=== PATIENT | female | born 1965 | race Caucasian/White ===

== ENCOUNTER 2017-03-02 14:10 | Outpatient (CLI) | payer BC ==
--- NOTE | 2017-03-02 16:13 | RAD ---
BILATERAL HIPS TWO VIEWS: History: 51-year-old female with bilateral hip pain. RIGHT HIP TWO VIEWS: IMPRESSION: Mild degenerative changes without acute fracture or dislocation. LEFT HIP TWO VIEWS: IMPRESSION: Mild degenerative changes of the left hip but no acute fracture or dislocation. POS: OFF
--- NOTE | 2017-03-02 16:22 | RAD ---
LUMBAR SPINE FIVE VIEWS INCLUDING FLEXION AND EXTENSION LATERAL STANDING VIEWS: History: 51-year-old female with low back pain. FINDINGS: Changes of spondylosis with fairly marked narrowing at L1-2 and L5-S1. Mild stable retrolisthesis of L1 on L2. No abnormal translation between flexion and extension. Generalized facet arthrosis. No ac yuhaaviatam fracture. IMPRESSION: Spondylosis with fairly marked narrowing at L1-2 and L5-S1 with stable retrolisthesis of L1 on L2. G eneralized spondylosis. No abnormal translation. POS: OFF
== END 2017-03-02 14:11 | disposition home or self-care (01) ==
LOC: RAD-FRANK 14:10
DX: M54.5 Low back pain (principal); M25.559 Pain in unspecified hip; M47.816 Spondylosis without myelopathy or radiculopathy, lumbar region
CPT/HCPCS: 72100; 73521

== ENCOUNTER 2017-07-15 20:15 | Emergency (ER) | payer BC ==
[2017-07-15 20:49] LABS: #Basophils 0.1 thou/uL (0.0-0.2); #Eosinphils 0.2 thou/uL (0.0-0.7); #Lymphocytes 2.8 thou/uL (1.20-3.40); #Monocytes 0.5 thou/uL (0.11-0.59); #Neutrophils 6.7 thou/uL (1.40-6.50); %Basophils 0.7 % (0.0-1.0); %Eosinophils 2.2 % (0.0-10.0); %Lymphocytes 27.2 % (21.0-51.0); %Monocytes 4.8 % (0.0-10.0); Hemoglobin 14.8 g/dL (12.0-16.0); Mean Corpuscular HGB CONC 33.1 g/dL (32.0-36.0); Mean Corpuscular Hemoglobin 29.2 pg (27.0-31.0); Mean Corpuscular Volume 88.1 fl (81.0-99.0); Mean Platelet Volume 7.4 fL (7.4-10.4); Platelet Count 290 thou/uL (130-400); RBC Distribution Width 13.5 % (11.5-14.5); Red Blood Cell (RBC) Count 5.07 mill/uL (4.20-5.40); White Blood Cell (WBC) Count 10.3 thou/uL (4.8-10.8)
--- NOTE | 2017-07-15 20:49 | RAD ---
CHEST ONE VIEW: 07/15/17 HISTORY: Chest pain. COMPARISON: 03/28/15. FINDINGS: Cardiac silhouette is magnified by projection. Pulmonary vasculature is unremarkable. Retrocardiac de nsity is favored to represent a hiatal hernia. There is calcification in the aorta. No lobar consolid ation or evidence of pneumothorax. caustic purification operator leads overlie the chest. IMPRESSION: Atherosclerosis . No active cardiopulmonary abnormalities are otherwise demonstrated. POS: [place]
[2017-07-15 21:09] LABS: ALT (SGPT) 16 U/L (8-55); AST (SGOT) 18 U/L (5-34); Albumin 4.4 g/dL (3.5-5.0); Alkaline Phosphatase 104 U/L (40-150); Anion Gap 14 mmol/L (10-20); BUN (Urea Nitrogen) 12 mg/dL (9.8-20.1); Bilirubin, Total 0.3 mg/dL (0.2-1.2); CK (CPK) 102 U/L (29-168); Calc. Creatinine Clearance 0 mL/min (70-130); Calcium 9.6 mg/dL (7.8-10.44); Carbon Dioxide 22 mmol/L (22-29); Chloride 106 mmol/L (98-107); Estimated GFR-MDRD 85; Glucose 89 mg/dL (70-105); Potassium 3.7 mmol/L (3.5-5.1); Protein, Total 7.4 g/dL (6.0-8.3); Sodium 138 mmol/L (136-145)
[2017-07-15 21:11] LABS: CKMB 3.5 ng/mL (0-6.6); Troponin I Less than 0.010 ng/mL (< 0.028)
[2017-07-15] MEDS ORDERED: Ibuprofen 800 MG TAB ONE (22:02)
--- NOTE | 2017-07-17 15:41 | EKG ---
Test Reason : CHEST PAIN Blood Pressure : / mmHG Vent. Rate : 076 BPM Atrial Rate : 076 BPM P-R Int : 136 ms QRS Dur : 070 ms QT Int : 394 ms P-R-T Axes : 057 008 035 degrees QTc Int : 443 ms Normal sinus rhythm Possible Left atrial enlargement Borderline ECG Confirmed by JODY VERONICA, COLEMAN ([id number]), television news video editor BENJAMIN DOMINGUEZ ([id number]) on 07/17/2017 3:40:59 PM Referred By: Confirmed By:COLEMAN VERA MD
--- NOTE | 2017-07-17 15:41 | EKG ---
Test Reason : CP Blood Pressure : / mmHG Vent. Rate : 072 BPM Atrial Rate : 072 BPM P-R Int : 130 ms QRS Dur : 068 ms QT Int : 398 ms P-R-T Axes : 065 010 031 degrees QTc Int : 435 ms Normal sinus rhythm Possible Left atrial enlargement Borderline ECG Confirmed by COLEMAN VERA MD ([id number]), production editor BENJAMIN DOMINGUEZ ([id number]) on 07/17/2017 3:41:03 PM Referred By: Confirmed By:COLEMAN VERA MD
== END 2017-07-15 22:23 | disposition home or self-care (01) ==
LOC: ERS 20:15
DX: R07.9 Chest pain, unspecified (principal); K21.9 Gastro-esophageal reflux disease without esophagitis; I10 Essential (primary) hypertension; F17.210 Nicotine dependence, cigarettes, uncomplicated
CPT/HCPCS: 36415; 71045; 80053; 82550; 82553; 83880; 84484; 85025; 93005; 99406

== ENCOUNTER 2018-09-13 11:53 | Emergency (ER) | payer BC ==
[2018-09-13] MEDS ORDERED: Diazepam 5 MG TAB ONE (13:18)
== END 2018-09-13 13:20 | disposition home or self-care (01) ==
LOC: ERS 11:53
DX: M54.5 Low back pain (principal); G89.29 Other chronic pain; K21.9 Gastro-esophageal reflux disease without esophagitis; I10 Essential (primary) hypertension; F17.210 Nicotine dependence, cigarettes, uncomplicated
CPT/HCPCS: 99283

== ENCOUNTER 2018-12-05 06:13 | Emergency (ER) | payer BC ==
[2018-12-05] MEDS ORDERED: Morphine 4 MG/ML VIAL ONE (06:59)
[2018-12-05] MEDS ORDERED: Ketorolac Tromethamine 30 MG/ML VIAL ONE (06:59)
== END 2018-12-05 07:43 | disposition home or self-care (01) ==
LOC: ERS 06:13
DX: G89.29 Other chronic pain (principal); M54.5 Low back pain; K21.9 Gastro-esophageal reflux disease without esophagitis; I10 Essential (primary) hypertension; F17.210 Nicotine dependence, cigarettes, uncomplicated; Z79.891 Long term (current) use of opiate analgesic; Z79.899 Other long term (current) drug therapy
CPT/HCPCS: 96372; 99283; J1885; J2270

== ENCOUNTER 2019-03-28 22:45 | Emergency (ER) | payer BC ==
[2019-03-28] MEDS ORDERED: Ketorolac Tromethamine 30 MG/ML VIAL ONE (23:57)
== END 2019-03-29 01:11 | disposition left against medical advice (07) ==
LOC: ERS 22:45
DX: M54.5 Low back pain (principal); F17.210 Nicotine dependence, cigarettes, uncomplicated; I10 Essential (primary) hypertension
CPT/HCPCS: J1885

== ENCOUNTER 2019-05-17 16:34 | Emergency (ER) | payer BC ==
[2019-05-17] MEDS ORDERED: HYDROcodone/Acetaminophen 10/325 mg Tablet ONE (16:52)
== END 2019-05-17 17:05 | disposition home or self-care (01) ==
LOC: ERS 16:34
DX: G89.29 Other chronic pain (principal); M54.5 Low back pain; I10 Essential (primary) hypertension; F17.210 Nicotine dependence, cigarettes, uncomplicated
CPT/HCPCS: 99283

== ENCOUNTER 2019-05-18 17:45 | Emergency (ER) | payer BC ==
[2019-05-18 18:12] LABS: #Basophils 0.1 thou/uL (0.0-0.2); #Eosinphils 0.1 thou/uL (0.0-0.7); #Lymphocytes 2.3 thou/uL (1.20-3.40); #Monocytes 0.5 thou/uL (0.11-0.59); #Neutrophils 6.8 thou/uL (1.40-6.50); %Basophils 0.9 % (0.0-1.0); %Eosinophils 1.3 % (0.0-10.0); %Lymphocytes 23.6 % (21.0-51.0); %Monocytes 4.9 % (0.0-10.0); %Neutrophils 69.3 % (42.0-75.0); Hemoglobin 13.8 g/dL (12.0-16.0); Mean Corpuscular HGB CONC 33.3 g/dL (32.0-36.0); Mean Corpuscular Hemoglobin 29.1 pg (27.0-31.0); Mean Corpuscular Volume 87.4 fL (78.0-98.0); Mean Platelet Volume 8.2 fL (7.4-10.4); Platelet Count 396 thou/uL (130-400); RBC Distribution Width 12.1 % (11.5-14.5); Red Blood Cell (RBC) Count 4.75 mill/uL (4.20-5.40); White Blood Cell (WBC) Count 9.8 thou/uL (4.8-10.8)
[2019-05-18 18:17] LABS: Bacteria/HPF None Seen HPF (None Seen); Bilirubin 1+ (Negative); Blood, Urine Negative (Negative); Calcium Oxalate Crystals 4+ HPF (None Seen); Clarity Clear (Clear); Glucose, Urine (Dipstick) Normal (Negative); Leukocyte 250 Leu/uL (Negative); Nitrite Negative (Negative); Protein, Urine (Dipstick) 30 mg/dL (Neg-Trace); Urobilinogen 12 mg/dL (Less than 2)
[2019-05-18 18:29] LABS: RBC/HPF 0-3 HPF (0-3)
[2019-05-18 18:36] LABS: ALT (SGPT) 23 U/L (8-55); AST (SGOT) 17 U/L (5-34); Albumin 4.2 g/dL (3.5-5.0); Alkaline Phosphatase 100 U/L (40-110); Anion Gap 14 mmol/L (10-20); BUN (Urea Nitrogen) 17 mg/dL (9.8-20.1); Bilirubin, Total 0.3 mg/dL (0.2-1.2); Calc. Creatinine Clearance 0 mL/min (70-130); Calcium 9.2 mg/dL (7.8-10.44); Carbon Dioxide 21 mmol/L (22-29); Chloride 106 mmol/L (98-107); Estimated GFR-MDRD 70; Globulin 2.7 g/dL (2.4-3.5); Glucose 76 mg/dL (70-105); Potassium 4.1 mmol/L (3.5-5.1); Protein, Total 6.9 g/dL (6.0-8.3); Sodium 137 mmol/L (136-145)
[2019-05-18] MEDS ORDERED: HYDROcodone/Acetaminophen 5/325 mg Tablet ONE (21:20)
--- NOTE | 2019-05-18 21:49 | CT ---
EXAM: CT Stone Protocol PROVIDED CLINICAL HISTORY: Left lower quadrant pain COMPARISON: 07/04/2014 FINDINGS: The visualized lung bases are free of significant opacity. Moderate hiatal hernia. Changes of prior cholecystectomy with stable prominence of the common duct and intrahepatic biliary d uctal system. There is a 3 mm bladder calculus. There is no significant ureteral or renal collecting system dilatat ion. The solid abdominal organs demonstrate an unremarkable, unenhanced CT appearance. There is no bowel o bstruction evident. No free fluid or free air evident. Scattered vascular calcifications are seen. The osseous structures demonstrate no concerning lytic or blastic lesions. Lumbar spine degenerative changes are seen. IMPRESSION: 3 mm bladder calculus.
[2019-05-18] MEDS ORDERED: Ketorolac Tromethamine 60 MG/2 ML VIAL ONE (22:12)
== END 2019-05-18 22:45 | disposition home or self-care (01) ==
LOC: ERS 17:45
DX: N20.0 Calculus of kidney (principal); I10 Essential (primary) hypertension; F17.210 Nicotine dependence, cigarettes, uncomplicated
CPT/HCPCS: 36415; 74176; 80053; 81003; 81015; 85025; 96372; J1885

== ENCOUNTER 2019-05-21 04:56 | Inpatient (IN) | payer BC ==
[2019-05-21] MEDS ORDERED: Ondansetron PF 4 MG/2 ML Vial ONE (05:18)
[2019-05-21] MEDS ORDERED: Morphine 4 MG/ML VIAL ONE ×3 (05:18→09:12)
[2019-05-21 05:47] LABS: #Basophils 0.1 thou/uL (0.0-0.2); #Eosinphils 0.1 thou/uL (0.0-0.7); #Lymphocytes 2.1 thou/uL (1.20-3.40); #Monocytes 0.7 thou/uL (0.11-0.59); #Neutrophils 9.5 thou/uL (1.40-6.50); %Basophils 0.7 % (0.0-1.0); %Lymphocytes 16.9 % (21.0-51.0); %Monocytes 5.5 % (0.0-10.0); %Neutrophils 75.9 % (42.0-75.0); Hemoglobin 12.8 g/dL (12.0-16.0); Mean Corpuscular HGB CONC 32.3 g/dL (32.0-36.0); Mean Corpuscular Hemoglobin 28.8 pg (27.0-31.0); Mean Corpuscular Volume 89.2 fL (78.0-98.0); Mean Platelet Volume 8.5 fL (7.4-10.4); Platelet Count 324 thou/uL (130-400); RBC Distribution Width 12.1 % (11.5-14.5); Red Blood Cell (RBC) Count 4.44 mill/uL (4.20-5.40); White Blood Cell (WBC) Count 12.5 thou/uL (4.8-10.8)
[2019-05-21] MEDS ORDERED: Ketorolac Tromethamine 30 MG/ML VIAL ONE (05:53)
[2019-05-21 06:04] LABS: ALT (SGPT) 17 U/L (8-55); AST (SGOT) 15 U/L (5-34); Alkaline Phosphatase 82 U/L (40-110); Anion Gap 12 mmol/L (10-20); BUN (Urea Nitrogen) 13 mg/dL (9.8-20.1); Bilirubin, Total 0.2 mg/dL (0.2-1.2); Calc. Creatinine Clearance 0 mL/min (70-130); Calcium 8.9 mg/dL (7.8-10.44); Carbon Dioxide 24 mmol/L (22-29); Chloride 103 mmol/L (98-107); Estimated GFR-MDRD 81; Globulin 2.4 g/dL (2.4-3.5); Glucose 110 mg/dL (70-105); Lipase 193 U/L (8-78); Potassium 4.3 mmol/L (3.5-5.1); Protein, Total 6.4 g/dL (6.0-8.3); Sodium 135 mmol/L (136-145)
[2019-05-21 06:11] LABS: Bilirubin Negative (Negative); Blood, Urine Negative (Negative); Clarity Clear (Clear); Glucose, Urine (Dipstick) Normal (Negative); Leukocyte Negative Leu/uL (Negative); Nitrite Negative (Negative); Protein, Urine (Dipstick) Negative (Neg-Trace)
[2019-05-21] MEDS ORDERED: Promethazine HCl 25 MG/ML VIAL ONE (06:44)
[2019-05-21] MEDS ORDERED: Lidocaine 4% Topical Sol 50 ML BOT ONE (07:16)
[2019-05-21] MEDS ORDERED: Benzocaine 20% Spray 60 ML CAN ONE (07:17)
--- NOTE | 2019-05-21 08:39 | CT ---
PRELIMINARY REPORT/[facility]/AFTER HOURS PROCEDURE CT ABDOMEN AND PELVIS WITH INTRAVENOUS CONTRAST: CLINICAL HISTORY: PRIOR STUDY...ER 7...F54 presents to ED with left sided abdominal pain, known kidney stone. Pt report s dx of 3mm kidney stone 2 days ago, pain began 4 days ago. Tonight pt woke from sleep with worsened pain, left abdomen. Pt reports associated vomiting, denies fever. Pt has had kidney stones in past, h as always passed on own, never needed procedure. TECHNIQUE: Axial computed tomography images of the abdomen and pelvis with intravenous contrast. CONTRAST: With Isovue-370 100 mL. COMPARISON: None provided. FINDINGS: LUNG BASES: No basilar airspace consolidation or pleural effusion. LIVER: Unremarkable. GALLBLADDER AND BILE DUCTS: Status post cholecystectomy. Common bile duct measures up to 2.2 cm with moderate left greater than right intrahepatic biliary ductal dilatation. PANCREAS: Moderate dilatation of the proximal pancreatic duct measuring up to 6 mm. SPLEEN: Unremarkable. ADRENAL GLANDS: Unremarkable. KIDNEYS, URETERS, AND BLADDER: Unremarkable. No hydronephrosis or nephrolithiasis. No ureteral or malka dder calculi. STOMACH AND BOWEL: Moderate hiatal hernia. Multiple dilated loops of small bowel within the mid abdom en measuring up to 2.9 cm with distal decompressed loops of bowel and an acute transition point in th e right lower quadrant. Fecalization of the distal dilated bowel which indicates stasis. Findings lik geetha represent small bowel obstruction. APPENDIX: Normal appendix. PERITONEUM: No free fluid. No free air. LYMPH NODES: No lymphadenopathy. REPRODUCTIVE: Unremarkable as visualized. VASCULATURE: No aortic aneurysm. BONES: Degenerative changes of the spine, worst at L1/2. ABDOMINAL WALL AND SOFT TISSUES: Unremarkable. IMPRESSION: 1. Multiple dilated loops of small bowel within the mid abdomen measuring up to 2.9 cm with distal de compressed loops of bowel and an acute transition point in the right lower quadrant. Findings likely represent small bowel obstruction. 2. Status post cholecystectomy. Common bile duct measures up to 2.2 cm with moderate left greater srinath n right intrahepatic biliary ductal dilatation. 3. Moderate dilatation of the proximal pancreatic duct measuring up to 6 mm. Correlation with prior s tudies and/or EUS is recommended. ELECTRONICALLY SIGNED BY: Raquel Marshall MD May 21, 2019 7:00:32 AM SAMPLE SUPERVISOR This report is intended for review by the ordering physician only, in accordance of law. If you recei ve this report in error, please call [facility] at [phone]. FINAL REPORT CT ABDOMEN AND PELVIS WITH INTRAVENOUS CONTRAST: COMPARISON: 10/30/2011 FINDINGS: Low density lesions in the liver and a degree of biliary and pancreatic dilatation is stable. The hia mark hernia is slightly larger compared to the previous study. A tiny, 3 mm bladder calculus is unchan ged since CT stone protocol of 05/18/2019. I agree with the preliminary report given by Dr. Raquel Carrasco of [facility]. CODE QA POS: [facility]
[2019-05-21] MEDS ORDERED: Labetalol HCl 100 MG/20 ML VIAL ONE (08:44)
--- NOTE | 2019-05-21 08:46 | RAD ---
Abdomen one view HISTORY: Abdomen pain. Kidney stone. COMPARISON: FINDINGS: Large amount of stool overlies the right colon. Nonspecific bowel gas pattern. Nasogastric tube overlies the upper abdomen, with the tip directed over the pylorus. Metallic clips over the gallbladder fossa. Contrast serial within the urinary collecting system. IMPRESSION: Nasogastric tube within the stomach. Nonspecific bowel gas pattern
[2019-05-21] MEDS ORDERED: Bisacodyl 10 MG SUPP PR PRN (09:10)
[2019-05-21] MEDS ORDERED: Cepastat Lozenges 1 LOZ PO PRN (09:10)
[2019-05-21] MEDS ORDERED: Artificial Tears 18 DROP/0.9 ML EA EYE PRN (09:10)
[2019-05-21] MEDS ORDERED: hydrALAZINE 20 MG/ML VIAL SLOW IVP PRN (09:10)
[2019-05-21] MEDS ORDERED: Sodium Chloride 0.65% Nasal 44 ML BOT EA NARE PRN (09:10)
[2019-05-21] MEDS ORDERED: Acetaminophen 650 MG Suppository PR PRN (09:10)
[2019-05-21] MEDS: Ondansetron PF 4 MG/2 ML Vial IVP PRN ×2 (10:00→17:15)
[2019-05-21] MEDS: Dextrose 5 % And 0.9 % NaCl 1,000 ML IV SCH ×2 (10:00→17:43)
--- NOTE | 2019-05-21 10:10 | PDOC.EVN ---
Event Note - Event Note Event Note: pt seen and examined, H & P dictation to follow
[2019-05-21 10:48] VITALS: BMI 26.4
[2019-05-21] MEDS: Morphine 4 MG/ML VIAL SLOW IVP PRN ×5 (10:57→19:58)
[2019-05-21] MEDS: Enoxaparin Sodium 40 MG/0.4 ML SYRINGE SC SCH (11:00)
[2019-05-21] MEDS: Pantoprazole 40 MG VIAL IVP SCH (11:00)
[2019-05-21] MEDS ORDERED: Iopamidol-370 76% 500 ML 1 ML ONE (11:21)
[2019-05-21] MEDS: diphenhydrAMINE 50 MG/ML VIAL IVP PRN (11:39)
--- NOTE | 2019-05-21 17:00 | CON ---
DATE OF CONSULTATION: 05/21/2019 REASON FOR CONSULTATION: Potential bowel obstruction. CHIEF COMPLAINT: "My abdomen was hurting." HISTORY OF PRESENT ILLNESS: The patient is a 54-year-old female, who had a recent diagnosis of a kidney stone. This was approximately 2 days ago. Her pain began to worsen and then she presented to the emergency room. Pain was located in the lower abdomen, left-hand side, up to 8/10. Crampy and somewhat constant. She had associated nausea with some vomiting. Currently, her pain is improved. She states that she is passing flatus. PAST MEDICAL HISTORY: For kidney stones. PAST SURGICAL HISTORY: For section, hernia repair, and laparoscopic cholecystectomy. SOCIAL HISTORY: Social drinker, half pack per day smoker since age 16. MEDICATIONS: Flomax 0.4 mg and Tylenol No.3 with codeine-both of these recently prescribed for her kidney stone. REVIEW OF SYSTEMS: Positive for positive flatus. No recent bowel movement. Chronic cough. No diarrhea. No chest pain. No shortness of breath. ALLERGIES: TO IODINE AND KETOROLAC. PHYSICAL EXAMINATION: VITAL SIGNS: Temperature 98.9, heart rate 72, blood pressure 178/90, and oxygen saturations 98% on room air. GENERAL: Middle-aged female, in no apparent distress. HEENT: Head is normocephalic and atraumatic. The patient does have an NG tube. There is probably less than 100 mL in the container. It is functioning. NECK: Supple. Midline trachea. CHEST: Grossly clear to auscultation bilaterally. HEART: Regularly regular. ABDOMEN: Soft without notable distention. No appreciable tenderness to palpation on exam. The patient does have normoactive bowel sounds. EXTREMITIES: Full range of motion. No deformity. SKIN: Good turgor. No jaundice. PSYCHIATRIC: Good insight and good judgment. LABORATORY DATA: White blood cell count is 12.5, neutrophils 75.9. RADIOLOGY: I independently reviewed the images of the patient's CT scan abdomen and pelvis. I also read the radiologist's interpretation. The patient does have a few mildly dilated loops of small bowel, especially in the upper and mid abdomen. There appears to be somewhat of a transition point in the right lower quadrant. I do appreciate some fecalization of the small bowel. On the plain film that was obtained later after NG tube placement, the patient does still have some air going throughout the colon. The bowel gas pattern is a little bit more nonspecific. She does have stool within the right colon and gas, more so on the left-hand side. There are clips from her cholecystectomy. ASSESSMENT: Partial small-bowel obstruction-the patient has had a few abdominal surgeries to include hernia repair, cholecystectomy, and section. Given that the patient is passing flatus and her vital signs are normal, I am inclined to continue with conservative management. Her white blood cell count is slightly elevated at 12.5. The patient was informed that 80% of these situations will resolve on their own. If, by tomorrow morning, she has not had a bowel movement or more reliable return of bowel function, small-bowel follow through will more than likely be ordered. The patient understands. PLAN: Continue n.p.o. and NG tube. Continue IV fluids. Reassess white blood cell count tomorrow morning. Possible small-bowel follow-through in the morning if she does not have demonstrable return of bowel function. Job ID: [id number]
[2019-05-21] MEDS ORDERED: Lorazepam 2 MG/ML VIAL SLOW IVP PRN (18:54)
--- NOTE | 2019-05-21 19:27 | HP ---
PRIMARY CARE PHYSICIAN: LORE Lee. REASON FOR ADMISSION: Small bowel obstruction. HISTORY OF PRESENT ILLNESS: A 54-year-old female who came to emergency room about 2 days ago. At that time, the patient was discharged from emergency room and subsequently, she had another ER visit and the patient had CT abdomen and pelvis which showed a kidney stone and the patient was discharged home. Last night around 3:00 a.m., the patient was woke up with severe abdominal pain. Family member thought may be a kidney stone related pain and that is why patient was brought to the ER and the patient had another CT abdomen and pelvis, which showed small bowel obstruction. This time, the patient was having diffuse crampy abdominal pain, constant, associated with nausea and vomiting. The patient was treated in the emergency room with NG tube with low intermittent suction. The patient was also hypertensive, required several doses of blood pressure medication and she was given several doses of pain medication in the emergency room, and subsequently, the patient was admitted under Medicine Service. PAST MEDICAL HISTORY: Hypertension. The patient is not on any medication. PAST SURGICAL HISTORY: Cholecystectomy, , hernia repair. PAST PSYCHIATRIC HISTORY: Reviewed and negative. SOCIAL HISTORY: The patient is . Drinks alcohol socially. She smokes about half pack per day since age of 16. FAMILY HISTORY: No strong family history of premature coronary artery disease, stroke, or cancer. ALLERGIES: IODINATED CONTRAST MEDIA AND TORADOL. CURRENT HOME MEDICATIONS: 1. Tylenol with codeine 1 tablet q.6 hourly p.r.n. 2. Flomax 0.4 mg p.o. daily. 3. Zofran ODT 4 mg q.6 hourly p.r.n., which was recently prescribed from emergency room. REVIEW OF SYSTEMS: CONSTITUTIONAL: Negative for weight loss or gain, ability to conduct usual activities. SKIN: Negative for rash, itching. EYES: Negative for double vision, pain. ENT/MOUTH: Negative for nose bleeding, neck stiffness, pain, tenderness. CARDIOVASCULAR: Negative for palpitations, dyspnea on exertion, orthopnea. RESPIRATORY: Negative for shortness of breath, wheezing, cough, hemoptysis, fever or night sweats. GASTROINTESTINAL: Negative for poor appetite, abdominal pain, heartburn, nausea, vomiting, constipation, or diarrhea. GENITOURINARY: Negative for urgency, frequency, dysuria, nocturia. MUSCULOSKELETAL: Negative for pain, swelling. NEUROLOGIC/PSYCHIATRIC: Negative for anxiety, depression. ALLERGY/IMMUNOLOGIC: Negative for skin rash, bleeding tendency. Please see my HPI for pertinent positives and negatives. All other review of systems reviewed and negative except as mentioned in HPI. EMERGENCY ROOM COURSE: The patient is given morphine 4 mg x3 dose, labetalol 20 mg, Zofran 8 mg, Toradol 30 mg, Phenergan 12.5 mg. PHYSICAL EXAMINATION: VITAL SIGNS: On arrival, blood pressure 183/103, pulse 94, respiratory rate 20, temperature 98.5, saturation 99% on room air. Weight 83.9 kg. GENERAL: The patient is currently alert, awake, no obvious acute distress. HEENT: Head; normocephalic, atraumatic. Eyes; pupils round, reactive to light. Extraocular muscles intact. ENT; oropharynx within normal limits. Moist mucous membranes. No oral lesion. No pharyngeal erythema. No exudate. NECK: Supple. No JVD. No meningeal signs of irritation. LUNGS: Clear to auscultation without any rhonchi or rales. CARDIAC: S1, S2. Regular without any murmur. No gallop. No rub. ABDOMEN: Soft. Diffuse discomfort noted. No bowel sounds. No peritoneal sign. EXTREMITIES: No edema. Good distal pulsation. NEUROLOGIC: Nonfocal examination. SIGNIFICANT LABORATORY DATA: CT abdomen and pelvis consistent with small bowel obstruction. X-ray abdomen showed nasogastric tube within stomach. CBC; WBC 12.5, hemoglobin 12.8, platelets 324. BMP; sodium 135, potassium 4.3, chloride 103, carbon dioxide 24, anion gap 12, BUN 13, creatinine 0.74, glucose 110, calcium 8.9. LFTs; AST 15, ALT 17, alkaline phosphatase 82, albumin 4.0, lipase 193. ASSESSMENT AND PLAN: 1. Small bowel obstruction. The patient is currently treated conservatively with NG tube with low intermittent suction. We will keep n.p.o. We will consult General Surgery for evaluation. We are expecting that with conservative treatment, the patient's small-bowel obstruction will improve. The patient may need small bowel follow-through tomorrow. We will control her pain with morphine p.r.n. basis. 2. Hypertension, uncontrolled. We will try to control blood pressure with hydralazine and labetalol p.r.n. basis and we will start blood pressure medication upon discharge. 3. Tobacco abuse disorder. Smoking cessation counseling given. 4. Deep venous thrombosis prophylaxis, Lovenox 40 mg subcu daily. 5. Gastrointestinal prophylaxis, Protonix 40 mg IV daily. CODE STATUS: The patient is full code. DISPOSITION PLAN: Based on clinical course, we are expecting the patient's stay in hospital more than 2 midnights. Plan of care discussed with the patient in detail. Job ID: [id number]
--- NOTE | 2019-05-21 19:44 | PDOC.EVN ---
Event Note - Event Note Event Note: Called by RN who states inadequate pain relief - morphine only helping for 30 minutes, and is available every 2 hours. RN reports pain has not been adequately managed today. Will place request for HABITAT BIOLOGIST through Anesthesia.
[2019-05-21] MEDS: D5 1/2 NS w/20 mEq KCL 1,000 ML IV SCH (19:58)
[2019-05-21] MEDS ORDERED: HYDROmorphone 10 mg/100 ml CADD IVPB PRN (19:59)
[2019-05-21] MEDS ORDERED: diphenhydrAMINE 50 MG/ML VIAL IVP PRN (19:59)
[2019-05-21] MEDS ORDERED: Zolpidem Tartrate 5 MG TAB PO PRN (19:59)
[2019-05-21] MEDS ORDERED: diphenhydrAMINE 50 MG/ML VIAL IM PRN (19:59)
[2019-05-21] MEDS ORDERED: Ondansetron PF 4 MG/2 ML Vial IVP PRN (19:59)
[2019-05-21] MEDS ORDERED: diphenhydrAMINE 25 MG CAP PO PRN (19:59)
[2019-05-21] MEDS ORDERED: Naloxone HCl 0.4 mg/ml Vial IV PRN (19:59)
[2019-05-21] MEDS ORDERED: Communication Order-Pharmacy FS SCH (20:00)
[2019-05-22] MEDS: Ondansetron PF 4 MG/2 ML Vial IVP PRN ×3 (04:26→19:23)
[2019-05-22 04:46] LABS: #Basophils 0.1 thou/uL (0.0-0.2); #Eosinphils 0.1 thou/uL (0.0-0.7); #Lymphocytes 2.9 thou/uL (1.20-3.40); #Monocytes 0.5 thou/uL (0.11-0.59); %Eosinophils 1.4 % (0.0-10.0); %Lymphocytes 29.6 % (21.0-51.0); %Monocytes 5.4 % (0.0-10.0); %Neutrophils 62.6 % (42.0-75.0); Hemoglobin 11.9 g/dL (12.0-16.0); Mean Corpuscular HGB CONC 32.4 g/dL (32.0-36.0); Mean Corpuscular Hemoglobin 28.8 pg (27.0-31.0); Mean Platelet Volume 8.6 fL (7.4-10.4); Platelet Count 296 thou/uL (130-400); RBC Distribution Width 12.2 % (11.5-14.5); Red Blood Cell (RBC) Count 4.14 mill/uL (4.20-5.40); White Blood Cell (WBC) Count 9.6 thou/uL (4.8-10.8)
[2019-05-22 05:02] LABS: Anion Gap 12 mmol/L (10-20); BUN (Urea Nitrogen) 5 mg/dL (9.8-20.1); Calc. Creatinine Clearance 99 mL/min (70-130); Calcium 8.6 mg/dL (7.8-10.44); Carbon Dioxide 24 mmol/L (22-29); Chloride 105 mmol/L (98-107); Estimated GFR-MDRD Greater than 90; Glucose 109 mg/dL (70-105); Potassium 3.5 mmol/L (3.5-5.1); Sodium 137 mmol/L (136-145)
[2019-05-22] MEDS ORDERED: Enalaprilat Dihydrate 1.25 MG/ML VIAL SLOW IVP SCH (07:15)
[2019-05-22] MEDS: Enoxaparin Sodium 40 MG/0.4 ML SYRINGE SC SCH (08:29)
[2019-05-22] MEDS: Pantoprazole 40 MG VIAL IVP SCH (08:30)
[2019-05-22] MEDS: Promethazine HCl 25 MG/ML VIAL IM PRN ×3 (08:42→23:16)
[2019-05-22] MEDS: D5 1/2 NS w/20 mEq KCL 1,000 ML IV SCH ×2 (08:43→18:01)
[2019-05-22] MEDS ORDERED: Morphine 4 MG/ML VIAL SLOW IVP PRN (09:23)
[2019-05-22] MEDS ORDERED: Morphine 2 MG/ML SYRINGE SLOW IVP PRN ×3 (09:23→23:06)
--- NOTE | 2019-05-22 10:29 | PDOC.HOSPP ---
- Subjective Encounter Date: 05/22/19 Encounter Time: 08:00 Subjective: Patient seen and examined. pt still has abdominal pain, her pain is not well controlled, she is anxious, No overnight events - Objective Vital Signs & Weight: Vital Signs (12 hours) Temp Pulse Resp BP BP Pulse Ox 05/22/19 09:42 173/77 H 05/22/19 08:30 100 05/22/19 08:29 156/97 H 05/22/19 07:51 98.5 F 91 16 156/97 H 100 05/22/19 05:10 71 187/100 H 05/22/19 04:34 98.0 F 66 16 179/94 H 99 05/22/19 01:00 98.8 F 87 16 170/97 H 98 Weight Weight 135 lb I&O: 05/21/19 05/22/19 05/23/19 06:59 06:59 06:59 Intake Total 2550 Output Total 1950 Balance 600 Result Diagrams: 05/22/19 04:15 05/22/19 04:15 Radiology Reviewed by me: Yes Hospitalist ROS - Review of Systems Eyes: denies: pain, vision change, conjunctivae inflammation, eyelid inflammation, redness, other ENT: denies: ear pain, ear discharge, nose pain, nose discharge, nose congestion , mouth pain, mouth swelling, throat pain, throat swelling, other Respiratory: denies: cough, dry, shortness of breath, hemoptysis, SOB with excertion, pleuritic pain, sputum, wheezing, other Cardiovascular: denies: chest pain, palpitations, orthopnea, paroxysmal noc. dyspnea, edema, light headedness, other Gastrointestinal: reports: nausea, vomiting, abdominal pain. denies: diarrhea, constipation, melena, hematochezia, other Genitourinary: denies: dysuria, frequency, incontinence, hematuria, retention, other Musculoskeletal: denies: neck pain, shoulder pain, arm pain, back pain, hand pain, leg pain, foot pain, other Skin: denies: rash, lesions, jay, bruising, other - Medication Medications: Active Medications Generic Name Dose Route Start Last Admin Trade Name Freq PRN Reason Stop Dose Admin Diphenhydramine HCl 25 mg 05/21/19 11:34 05/21/19 11:39 Benadryl IVP 25 mg Q8H PRN Administration Itching Enoxaparin Sodium 40 mg 05/21/19 09:00 05/22/19 08:29 Lovenox SC 40 mg 0900 DAVID Administration Hydralazine HCl 10 mg 05/21/19 09:10 05/22/19 05:10 Apresoline SLOW IVP 10 mg Q2H PRN Administration SBP > 180 and HR < 70 Potassium Chloride/Dextrose/Sod Cl 1,000 mls @ 100 mls/hr 05/21/19 19:00 11/03 08:43 D5 1/2 Ns W/20 Meq Kcl IV 1,000 mls .Q10H DAVID Administration Ondansetron HCl 4 mg 05/21/19 09:10 05/22/19 04:26 Zofran IVP 4 mg Q6H PRN Administration Nausea/Vomiting Pantoprazole Sodium 40 mg 05/21/19 09:00 05/22/19 08:30 Protonix IVP 40 mg DAILY DAVID Administration Promethazine HCl 12.5 mg 05/21/19 19:59 05/22/19 08:42 Phenergan IM 12.5 mg Q4H PRN Administration Nausea/Vomiting - Exam General Appearance: NAD, awake alert Eye: PERRL, anicteric sclera Eye - other findings: NG tube + ENT: normocephalic atraumatic, no oropharyngeal lesions Neck: supple, symmetric, no JVD, no thyromegaly Heart: RRR, no murmur, no gallops, no rubs Respiratory: CTAB, no wheezes, no rales Gastrointestinal: soft, non-distended Extremities: no cyanosis, no clubbing, no edema Skin: normal turgor, no lesions Neurological: no focal deficits Musculoskeletal: normal tone, normal strength Psychiatric: normal affect, normal behavior Hosp A/P (1) SBO (small bowel obstruction) Code(s): K56.609 - UNSP INTESTNL OBST, UNSP TO PARTIAL VERSUS COMPLETE OBST Status: Acute (2) Hypertension Code(s): I10 - ESSENTIAL (PRIMARY) HYPERTENSION Status: Chronic (3) GERD (gastroesophageal reflux disease) Code(s): K21.9 - GASTRO-ESOPHAGEAL REFLUX DISEASE WITHOUT ESOPHAGITIS Status: Chronic Qualifiers: Esophagitis presence: without esophagitis Qualified Code(s): K21.9 - Gastro -esophageal reflux disease without esophagitis (4) Anxiety Code(s): F41.9 - ANXIETY DISORDER, UNSPECIFIED Status: Chronic (5) Hiatal hernia Code(s): K44.9 - DIAPHRAGMATIC HERNIA WITHOUT OBSTRUCTION OR GANGRENE Status: Chronic - Plan old records reviewed/req, plan discussed w/ family, DVT proph w/lovenox 05/22/19, continue NG tube with LIS, currently on PIG MACHINE OPERATOR for pain control, medication reviewed as below, symptomatic treatment, discussed with , surgeon following, may need SBFT
--- NOTE | 2019-05-22 14:57 | RAD ---
SMALL BOWEL FOLLOW THROUGH: HISTORY: Abdominal pain. FINDINGS: Preliminary scalp film shows a mild amount of stool within the colon. Gastrografin was introduced th rough an NG tube. Small bowel transit time was approximately 20 minutes. Small bowel folds and justyn tony were normal. IMPRESSION: Unremarkable small bowel follow-through. POS: [place]
[2019-05-22] MEDS ORDERED: MD-Gastroview 120 ML BOT ONE (16:39)
[2019-05-22] MEDS ORDERED: traMADol HCl 50 MG TAB PO PRN ×2 (17:34)
--- NOTE | 2019-05-22 18:29 | PRG ---
DATE OF SERVICE: 05/22/2019 SUBJECTIVE: Ms. Perez is a 54-year-old woman who was admitted with abdominal pain. Clinical and radiographic examination were suspicious for acute small bowel obstruction. Nasogastric tube was placed and overnight has returned 750 mL of bile-tinged effluent. Currently, the patient reports no nausea or abdominal pain at present, although she has been on WOLF HUNTER fentanyl since yesterday for pain control. She denies any fevers or chills. OBJECTIVE: VITAL SIGNS: Today include blood pressure 156/94, pulse 102, respiratory rate is 20, temperature 98.2 degrees Fahrenheit, oxygen saturation 99% on room air. HEART: Reveals regular rate with mild sinus tachycardia. No murmurs or gallops auscultated. LUNGS: Clear to auscultation bilaterally. Her breathing is regular and nonlabored. ABDOMEN: Soft, nontender, nondistended. NEUROLOGIC: Reveals no focal deficits present. LABORATORY FINDINGS: Today include a CBC with 9600 white blood cells down from 12,500 yesterday. Hemoglobin and hematocrit remained stable at 11.9 and 36.8 respectively. Platelet count is also stable at 296,000. Metabolic profile; sodium 137, potassium 3.5, chloride is 105, bicarb is 24, BUN 5, creatinine 0.62, glucose is 109. Small-bowel follow-through was obtained today, which reveals no evidence of obstruction as contrast readily appeared in the colon within 20 minutes. IMPRESSION: Resolved acute partial small-bowel obstruction. PLAN: Nasogastric tube will be discontinued and diet initiated. We will discontinue WOLF HUNTER analgesics. The patient will be started on Tylenol for pain as needed, alternating days with tramadol 1 to 2 p.o. q.6 hours p.r.n. pain. Above findings and plan discussed with the patient who indicates understanding of information given. I have answered the questions. Job ID: [id number]
[2019-05-22] MEDS ORDERED: Acetaminophen/Codeine 30-300mg Tablet PO PRN (21:22)
--- NOTE | 2019-05-22 23:39 | PRG ---
DATE OF SERVICE: 05/22/2019 SUBJECTIVE: The patient was seen this evening during the evening rounds. The patient was resting comfortably, in no acute distress. Nursing staff states that the patient cannot take tramadol as it makes her extremely nauseated. OBJECTIVE: VITAL SIGNS: Stable, afebrile. RESPIRATORY: Equal chest rise and fall, no respiratory distress. IMPRESSION: Resolved acute partial small bowel obstruction. PLAN: Continue clear liquid diet and advance as tolerated. We will discontinue the patient's tramadol as it makes her nauseated and start the patient on Tylenol No.3 p.r.n. We will continue to have patient ambulate frequently. Job ID: [id number]
[2019-05-23] MEDS: Ondansetron PF 4 MG/2 ML Vial IVP PRN ×2 (01:04→11:55)
[2019-05-23] MEDS: diphenhydrAMINE 50 MG/ML VIAL IVP PRN (01:11)
[2019-05-23] MEDS: Promethazine HCl 25 MG/ML VIAL IM PRN ×2 (02:59→07:38)
[2019-05-23] MEDS: Labetalol HCl 100 MG/20 ML VIAL SLOW IVP PRN ×2 (03:54→07:40)
[2019-05-23] MEDS ORDERED: Ketorolac Tromethamine 30 MG/ML VIAL IVP SCH (04:00)
[2019-05-23 05:45] LABS: Anion Gap 15 mmol/L (10-20); BUN (Urea Nitrogen) 5 mg/dL (9.8-20.1); Calc. Creatinine Clearance 93 mL/min (70-130); Calcium 9.1 mg/dL (7.8-10.44); Carbon Dioxide 22 mmol/L (22-29); Chloride 102 mmol/L (98-107); Estimated GFR-MDRD Greater than 90; Glucose 133 mg/dL (70-105); Magnesium 1.4 mg/dL (1.6-2.6); Phosphorus 2.6 mg/dL (2.3-4.7); Sodium 135 mmol/L (136-145)
[2019-05-23] MEDS: D5 1/2 NS w/20 mEq KCL 1,000 ML IV SCH (06:03)
[2019-05-23] MEDS: Pantoprazole 40 MG VIAL IVP SCH (07:45)
[2019-05-23] MEDS: Enoxaparin Sodium 40 MG/0.4 ML SYRINGE SC SCH (09:59)
[2019-05-23] MEDS ORDERED: Ketorolac Tromethamine 30 MG/ML VIAL IVP PRN ×2 (10:00→10:18)
[2019-05-23] MEDS ORDERED: Cyclobenzaprine 10 MG TAB PO PRN (10:15)
[2019-05-23 15:34] VITALS: BP 126/73; TEMP 98.3
--- NOTE | 2019-05-24 06:53 | PQF ---
SAP Software Performance Engineer Crystal Reports Winform ViewerRadhaMUNDO VILLAVICENCIO BECKI TOMPKINS [id number] CLINICAL DOCUMENTATION CLARIFICATION FORM: POST DISCHARGE Addendum to original discharge summary date: ____ Late entry note date: __ DATE: 05/24/2019 ATTN:BECKI TOMPKINS Please exercise your independent, professional judgment in responding to the clarification form. Clinical indicators are provided on the bottom of this form for your review Please check appropriate box(s): [ ] SBO due to post op complication [ ] SBO due to hiatal hernia [ ] Other more appropriate diagnosis [X ] Unable to determine In addition, please specify: Present on Admission (POA): [X ] Yes [ ] No [ ] Unable to determine For continuity of documentation, please document condition throughout progress notes and discharge summary. Thank You. CLINICAL INDICATORS - SIGNS / SYMPTOMS / LABS Severe abdominal pain with nausea and vomiting - Documented in H&P on 05/21 by Tatiana Wright Small bowel obstruction - Documented in H&P on 05/21 by Tatiana Wright Hiatal Hernia chronic - Documented in Hospital PNs on 05/22 by Tatiana Wright RISK FACTORS Partial SBO the patient had few abdominal surgeries to include hernia repair, cholecystectomy and C section - Documented in Consult note 05/21 by Brendan Garcia GERD HTN TREATMENTS: Patient currently treated conservatively with NG tube with low intermittent suction - Documented in H&P on 05/21 by Tatiana Wright Abdomen Xray, Small Bowel X ray Continue n.p.o IV fluid NG tube - Documented in Consult note 05/21 by Brendan Garcia SAP Software Performance Engineer Crystal Reports Winform Viewer (This form is maintained as a part of the permanent medical record) 2014 [employer]. All Rights Reserved [email or web address] [not provided] MTDD
--- NOTE | 2019-05-24 10:02 | DIS ---
DATE OF ADMISSION: 05/21/2019 DATE OF DISCHARGE: 05/23/2019 DISCHARGE DISPOSITION: Home. FOLLOWUP: 1. Follow up with primary care physician, Anaid Edward in 1 week. 2. Follow up with General Surgery as needed. ALLERGIES: THE PATIENT IS ALLERGIC TO IODINE. BRIEF HOSPITAL COURSE: The patient is a 54-year-old female with hypertension, presented to the hospital with abdominal discomfort. Two days ago, she was diagnosed with a 3 mm renal stone. Pain worsened, for which she presented again to the emergency room. In the emergency room, the repeat CT scan was consistent with small bowel obstruction. The pain was controlled with IV morphine along with Toradol. She was evaluated by General Surgery. She was managed conservatively with NG tube. She had small bowel follow-through. Small bowel obstruction has resolved. She is tolerating oral diet. She has been cleared by General Surgery for discharge. FINAL DIAGNOSES: 1. Small bowel obstruction, resolved. 2. Hypertension. 3. Tobacco dependence. 4. Recent diagnosis of renal calculi. 5. Hypomagnesemia. PLAN: Plan was discussed with the patient in detail. She stated understanding. Job ID[facility] [id number] [facility]
== END 2019-05-23 15:50 | disposition home or self-care (01) | DRG 390 ==
LOC: ERS 04:56 → SURG A 07:36
PROVIDERS: ADMIT Internal Medicine; ATTEND Internal Medicine
DX: K56.600 Partial intestinal obstruction, unspecified as to cause (principal); K44.9 Diaphragmatic hernia without obstruction or gangrene; I10 Essential (primary) hypertension; Z90.49 Acquired absence of other specified parts of digestive tract; F17.210 Nicotine dependence, cigarettes, uncomplicated; Z91.041 Radiographic dye allergy status; Z88.8 Allergy status to other drugs, medicaments and biological substances; K21.9 Gastro-esophageal reflux disease without esophagitis; F41.9 Anxiety disorder, unspecified
CPT/HCPCS: 36415; 74018; 74176; 74177; 74250; 80048; 80053; 81003; 81015; 83690; 83735; 84100; 85025; 96361; 96372; 96374; 96375; 96376; C9113; J0360; J1200; J1650; J1885; J2060; J2270; J2405; J2550; J7042; Q9963; Q9967

== ENCOUNTER 2019-05-25 05:19 | Emergency (ER) | payer BC ==
[2019-05-25] MEDS ORDERED: Ondansetron PF 4 MG/2 ML Vial ONE (05:34)
[2019-05-25] MEDS ORDERED: Ketorolac Tromethamine 30 MG/ML VIAL ONE (05:47)
[2019-05-25 06:32] LABS: ALT (SGPT) 19 U/L (8-55); AST (SGOT) 24 U/L (5-34); Albumin 3.6 g/dL (3.5-5.0); Alkaline Phosphatase 68 U/L (40-110); Anion Gap 16 mmol/L (10-20); BHCG - Serum Negative (NEGATIVE); BUN (Urea Nitrogen) 15 mg/dL (9.8-20.1); Bilirubin, Total 0.3 mg/dL (0.2-1.2); Calc. Creatinine Clearance 0 mL/min (70-130); Calcium 9.8 mg/dL (7.8-10.44); Carbon Dioxide 18 mmol/L (22-29); Chloride 103 mmol/L (98-107); Estimated GFR-MDRD 71; Globulin 2.6 g/dL (2.4-3.5); Glucose 101 mg/dL (70-105); Lipase 29 U/L (8-78); Potassium 4.2 mmol/L (3.5-5.1); Pregs Control Background? CLEAR/WHITE (CLR/WHITE); Pregs Control Bar Appear? YES (CONTROL BAR); Protein, Total 6.2 g/dL (6.0-8.3); Sodium 133 mmol/L (136-145)
[2019-05-25] MEDS ORDERED: Sucralfate 1 GM/10 ML UDCUP ONE (06:33)
[2019-05-25 06:53] LABS: #Basophils 0.1 thou/uL (0.0-0.2); #Eosinphils 0.2 thou/uL (0.0-0.7); #Lymphocytes 2.4 thou/uL (1.20-3.40); #Monocytes 0.6 thou/uL (0.11-0.59); #Neutrophils 9.5 thou/uL (1.40-6.50); %Basophils 0.5 % (0.0-1.0); %Eosinophils 1.3 % (0.0-10.0); %Lymphocytes 18.9 % (21.0-51.0); %Monocytes 4.9 % (0.0-10.0); %Neutrophils 74.4 % (42.0-75.0); Hemoglobin 12.3 g/dL (12.0-16.0); Mean Corpuscular HGB CONC 32.9 g/dL (32.0-36.0); Mean Corpuscular Hemoglobin 29.3 pg (27.0-31.0); Mean Corpuscular Volume 88.9 fL (78.0-98.0); Mean Platelet Volume 8.4 fL (7.4-10.4); Platelet Count 250 thou/uL (130-400); RBC Distribution Width 12.8 % (11.5-14.5); Red Blood Cell (RBC) Count 4.21 mill/uL (4.20-5.40); White Blood Cell (WBC) Count 12.7 thou/uL (4.8-10.8)
[2019-05-25 07:07] LABS: Bilirubin Negative (Negative); Clarity Clear (Clear); Glucose, Urine (Dipstick) Normal (Negative); Leukocyte 500 Leu/uL (Negative); Nitrite Negative (Negative); Protein, Urine (Dipstick) Negative (Neg-Trace); Squamous Epithelial 0-3 HPF (0-3); WBC/HPF 0-3 HPF (0-3)
[2019-05-25 07:08] LABS: Bacteria/HPF 1+ HPF (None Seen)
[2019-05-25 07:09] LABS: Blood, Urine Trace (Negative)
--- NOTE | 2019-05-25 09:32 | RAD ---
1 VIEW CHEST 2 VIEWS ABDOMEN: Date: 05/25/2019 HISTORY: Small bowel obstruction. COMPARISON: 10/19/15. FINDINGS: 1 VIEW CHEST: Normal cardiac silhouette. Atherosclerosis of aorta. Pulmonary vessels and hilum are normal. Costophr enic angles are clear. No consolidation or mass. No pneumothorax or osseous abnormalities. Moderate h iatal hernia is noted. 2 VIEWS ABDOMEN: Surgical clips in the right upper quadrant. Air-filled, nondistended, nondilated colon is identified. There is fecal material in the right hemicolon. No evidence of small bowel distention or dilatation. No differential air fluid levels. No suspicious densities in the abdomen or pelvis. No pneumoperiton eum in the upright projection. There are two metallic densities projecting over the left and right hemipelvis, which are presumed to be external to the patient. Correlate clinically. IMPRESSION: 1. No acute cardiopulmonary process. 2. Nonspecific bowel gas pattern. POS: OFF
== END 2019-05-25 07:11 | disposition home or self-care (01) ==
LOC: ERS 05:19
DX: K59.00 Constipation, unspecified (principal); I10 Essential (primary) hypertension; F41.9 Anxiety disorder, unspecified; F17.210 Nicotine dependence, cigarettes, uncomplicated; Z79.891 Long term (current) use of opiate analgesic; Z79.899 Other long term (current) drug therapy
CPT/HCPCS: 36415; 74022; 80053; 81003; 81015; 83690; 84703; 85025; 96361; 96374; 96375; J1885; J2405

== ENCOUNTER 2019-12-10 04:32 | Emergency (ER) | payer SELFPAY ==
[2019-12-10] MEDS ORDERED: HYDROcodone/Acetaminophen 5/325 mg Tablet ONE (04:53)
--- NOTE | 2019-12-10 07:33 | RAD ---
CHEST 1 VIEW: INDICATION: Shortness of breath. History of COVID testing and cough. COMPARISON: Prior exam dated 06/12/2019 from [facility]. IMPRESSION: No acute cardiopulmonary abnormality. Stable small hiatal hernia. POS: BH
== END 2019-12-10 05:06 | disposition home or self-care (01) ==
LOC: ERS 04:32
DX: M54.5 Low back pain (principal); R05 Cough; F41.9 Anxiety disorder, unspecified; F17.210 Nicotine dependence, cigarettes, uncomplicated; I10 Essential (primary) hypertension
CPT/HCPCS: 71045

== ENCOUNTER 2020-01-12 15:41 | Emergency (ER) | payer SELFPAY ==
[2020-01-12] MEDS ORDERED: Ondansetron PF 4 MG/2 ML Vial ONE (16:26)
[2020-01-12] MEDS ORDERED: Morphine 4 MG/ML VIAL ONE (16:26)
[2020-01-12 16:27] LABS: #Basophils 0.1 thou/uL (0.0-0.2); #Lymphocytes 1.1 thou/uL (1.20-3.40); #Monocytes 0.2 thou/uL (0.11-0.59); #Neutrophils 9.1 thou/uL (1.40-6.50); %Basophils 0.6 % (0.0-1.0); %Eosinophils 0.1 % (0.0-10.0); %Lymphocytes 10.1 % (21.0-51.0); %Monocytes 2.3 % (0.0-10.0); Hemoglobin 15.6 g/dL (12.0-16.0); Mean Corpuscular HGB CONC 33.5 g/dL (32.0-36.0); Mean Corpuscular Hemoglobin 31.6 pg (27.0-31.0); Mean Corpuscular Volume 94.3 fL (78.0-98.0); Platelet Count 335 thou/uL (130-400); RBC Distribution Width 11.9 % (11.5-14.5); Red Blood Cell (RBC) Count 4.95 mill/uL (4.20-5.40); White Blood Cell (WBC) Count 10.4 thou/uL (4.8-10.8)
--- NOTE | 2020-01-12 16:34 | RAD ---
Exam:3 views left shoulder HISTORY: Fall. Pain. COMPARISON: None FINDINGS: Glenohumeral joint space is preserved. No dislocation or fracture. There are degenerative changes in the acromioclavicular joint space. Visualized left ribs and lung parenchyma do not demonstrate any acute abnormality. IMPRESSION: No fracture or dislocation. Chronic degenerative changes in the acromioclavicular joint s pace.
[2020-01-12 16:48] LABS: ALT (SGPT) 33 U/L (8-55); AST (SGOT) 19 U/L (5-34); Albumin 4.8 g/dL (3.5-5.0); Alkaline Phosphatase 121 U/L (40-110); Anion Gap 15 mmol/L (10-20); BUN (Urea Nitrogen) 10 mg/dL (9.8-20.1); Bilirubin, Total 0.5 mg/dL (0.2-1.2); Calc. Creatinine Clearance 0 mL/min (70-130); Calcium 10.1 mg/dL (7.8-10.44); Carbon Dioxide 24 mmol/L (22-29); Chloride 101 mmol/L (98-107); Estimated GFR-MDRD 84; Globulin 3.1 g/dL (2.4-3.5); Glucose 130 mg/dL (70-105); Lipase 30 U/L (8-78); Potassium 3.7 mmol/L (3.5-5.1); Protein, Total 7.9 g/dL (6.0-8.3); Sodium 136 mmol/L (136-145)
--- NOTE | 2020-01-12 18:08 | CT ---
CT CHEST, ABDOMEN AND PELVIS WITH IV CONTRAST: 01/12/20 PROVIDED CLINICAL HISTORY: Epigastric pain and vomiting. FINDINGS: Comparison is made with the examination dated 05/21/19. The heart, pericardium, and great vessels demonstrate an unremarkable CT appearance with the exceptio n of vascular calcifications, including coronary calcium. There is no evidence for thoracic lymph nod e enlargement. The airway appears patent and of normal caliber. The lungs are free of significant opacity. There is no pleural fluid or pneumothorax apparent. There is a large hiatal hernia, similar to prior examinations. Nonspecific apparent mural thickening involving the distal esophagus, which could reflect esophagitis. Marked intrahepatic and extrahepatic biliary ductal dilatation is redemonstrated with the common duct measuring up to 1.5 cm in transverse dimension. There is also prominence of the proximal pancreatic duct. There is no definite filling defect within the biliary system. No definite evidence for ampulla ry mass though evaluation is limited. There are multiple subcentimeter hypodense foci again noted throughout the liver, too small to defini tively characterize but not significantly changed with respect to the prior examination. The spleen, adrenal glands, and kidneys demonstrate an unremarkable CT appearance. There is a prominent fluid filled diverticulum arising from proximal jejunum. There is evidence for b owel obstruction. There is no inflammatory fat stranding, free fluid, or free air apparent. There is no evidence for appendicitis. The major regional vascular structures appear unremarkable. The osseous structures demonstrate no con cerning lytic or blastic lesions. The patient is status post cholecystectomy. IMPRESSION: 1. Large hiatal hernia with nonspecific mural thickening involving the distal most esophagus srinath t could reflect esophagitis. 2. Persistent marked intrahepatic and extrahepatic biliary ductal dilatation as well as promine nce of the pancreatic duct. Correlate with laboratory values regarding the possibility of biliary obs truction. GI consultation may be useful as indicated. 3. Other chronic findings as above. POS: JUAN A
== END 2020-01-12 18:47 | disposition home or self-care (01) ==
LOC: ERS 15:41
DX: S40.012A Contusion of left shoulder, initial encounter (principal); K44.9 Diaphragmatic hernia without obstruction or gangrene; K83.8 Other specified diseases of biliary tract; F41.9 Anxiety disorder, unspecified; F17.210 Nicotine dependence, cigarettes, uncomplicated; I10 Essential (primary) hypertension; W18.2XXA Fall in (into) shower or empty bathtub, initial encounter
CPT/HCPCS: 71260; 74177; 80053; 83690; 84484; 85025; 93005; 96361; 96374; 96375; J2270; J2405

== ENCOUNTER 2020-04-29 11:37 | Inpatient (IN) | payer SELFPAY ==
[2020-04-29 13:11] LABS: #Lymphocytes 1.6 thou/uL (1.20-3.40); #Monocytes 0.4 thou/uL (0.11-0.59); #Neutrophils 6.2 thou/uL (1.40-6.50); %Basophils 0.2 % (0.0-1.0); %Eosinophils 0.4 % (0.0-10.0); %Lymphocytes 19.2 % (21.0-51.0); %Monocytes 4.7 % (0.0-10.0); %Neutrophils 75.5 % (42.0-75.0); Hemoglobin 15.5 g/dL (12.0-16.0); Mean Corpuscular HGB CONC 33.3 g/dL (32.0-36.0); Mean Corpuscular Hemoglobin 29.6 pg (27.0-31.0); Mean Corpuscular Volume 88.9 fL (78.0-98.0); Mean Platelet Volume 8.1 fL (7.4-10.4); Platelet Count 289 thou/uL (130-400); RBC Distribution Width 12.5 % (11.5-14.5); Red Blood Cell (RBC) Count 5.24 mill/uL (4.20-5.40); White Blood Cell (WBC) Count 8.2 thou/uL (4.8-10.8)
--- NOTE | 2020-04-29 13:38 | RAD ---
Chest one view HISTORY: Chest pain. Nausea. COMPARISON: 12/10/2019. FINDINGS: Cardiac silhouette and pulmonary vasculature are unremarkable. Mediastinum is midline with aortic calcification. Small hiatal hernia. No lobar consolidation or evidence of pneumothorax. Hemostasis clips project over the gallbladder fos sa. IMPRESSION : No active cardiopulmonary abnormalities are demonstrated.
[2020-04-29 13:52] LABS: ALT (SGPT) 159 U/L (8-55); AST (SGOT) 77 U/L (5-34); Albumin 4.4 g/dL (3.5-5.0); Alkaline Phosphatase 193 U/L (40-110); Anion Gap 20 mmol/L (10-20); BUN (Urea Nitrogen) 14 mg/dL (9.8-20.1); Bilirubin, Total 0.4 mg/dL (0.2-1.2); Calc. Creatinine Clearance 0 mL/min (70-130); Calcium 9.2 mg/dL (7.8-10.44); Carbon Dioxide 17 mmol/L (22-29); Chloride 103 mmol/L (98-107); Globulin 3.3 g/dL (2.4-3.5); Glucose 98 mg/dL (70-105); Potassium 4.1 mmol/L (3.5-5.1); Protein, Total 7.7 g/dL (6.0-8.3); Sodium 136 mmol/L (136-145)
[2020-04-29] MEDS ORDERED: Aspirin Chewable 81 MG TAB ONE (15:23)
[2020-04-29] MEDS ORDERED: Albuterol 200 PUFF (6.7GM INHALER) ONE (15:41)
[2020-04-29 15:54] LABS: Bacteria/HPF None Seen HPF (None Seen); Bilirubin Negative (Negative); Blood, Urine Negative (Negative); Clarity Clear (Clear); Glucose, Urine (Dipstick) Normal (Negative); Ketone, Urine 20 mg/dL (Negative); Leukocyte 250 Leu/uL (Negative); Nitrite Negative (Negative); Protein, Urine (Dipstick) 50 mg/dL (Neg-Trace); Specific Gravity, Urine 1.046 (1.002-1.036); Squamous Epithelial 0-3 HPF (0-3); WBC/HPF 0-3 HPF (0-3)
[2020-04-29] MEDS ORDERED: Morphine 4 MG/ML VIAL ONE (15:58)
--- NOTE | 2020-04-29 16:35 | CT ---
CT ABDOMEN AND PELVIS WITHOUT CONTRAST: History: Suprapubic pain, abdominal pain, lack of appetite, nausea. Comparison: 01-12-2020, 05-30-2019 FINDINGS: Absence of oral and IV contrast reduces the sensitivity of the exam particularly for evaluation of so lid organs and bowel. The lung bases are unremarkable. Mild hiatal hernia. Nonspecific marrow thickening along the distal e sophagus again seen. The patient is post cholecystectomy. Biliary ductal dilatation is stable. The co mmon duct measures about 14 mm proximally and 20 mm distally. Biliary dilatation is essentially stabl e. Small cysts in the right lobe of the liver are also stable. There are punctate calculi in the kidneys measuring up to 3 mm. No calculi seen in the ureters or uri nary bladder. No hydroureteronephrosis is seen on either side. No free air or free fluid is seen in t he abdomen or pelvis. The small bowel loops are not abnormally dilated. 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 Uterus is present. There are vascular calcifications without evidence of aneurysmal dilatation of the abdominal aorta. T here are degenerative changes of the spine. IMPRESSION: 1. Tiny nonobstructing bilateral renal calculi. 2. Status post cholecystectomy with stable biliary ductal dilatation. 3. Mild hiatal hernia. 4. Jejunal diverticulum. POS: OFF
[2020-04-29 16:41] LABS: SARS-CoV-2 NAA Rapid Test DETECTED (NotDetected)
[2020-04-29] MEDS: Ketorolac Tromethamine 30 MG/ML VIAL IVP PRN (18:22)
[2020-04-29 18:41] LABS: Troponin I Less than 0.010 ng/mL (< 0.028)
[2020-04-29] MEDS ORDERED: Acetaminophen 650 MG Suppository PR PRN (19:02)
[2020-04-29] MEDS ORDERED: Acetaminophen 325 MG TAB PO PRN (19:02)
[2020-04-29] MEDS ORDERED: Benzonatate 100 MG CAP PO PRN (19:07)
--- NOTE | 2020-04-29 19:08 | PDOC.HHP ---
Hospitalist HPI - History of Present Illness History of Present Illness: ADMISSION DATE: 04/29/2020 TIME OF ASSESSMENT: 1800 PRIMARY CARE PHYSICIAN: None CHIEF COMPLAINT: Shortness of breath, generalized weakness and cough HPI: This is a 55-year-old woman who presents emergency department today after feeling generally unwell for the last week with progressively worsening generalized weakness and aching. She reports having discomfort in the center of her chest today that radiates towards the left side of her chest. States it was a 7 out of 10 in severity and has been intermittent for the last 2 to 3 days. S he is unable to describe the pain and states it almost feels like a stinging. Seems to be worse with coughing fits. She denies coughing up any purulent sputum or hemoptysis. Denies any known history of COPD or asthma but does smoke half a pack per day. For the last couple of days she has been unable to smoke due to feeling generally unwell. Patient states she was unable to get out of bed the last couple days. She also reports suprapubic discomfort with pain at the start of urination and darkening in her urine. Her p.o. intake has diminished the last few days. She denies any nausea vomiting or changes with her stools. She has been afebrile up until today and while in the emergency de partment was noted to have a low-grade temperature of 99. Patient has tested positive for Covid. ED COURSE: In the emergency department she underwent an EKG that showed sinus tachycardia with a heart rate of 100. T wave inversion seen in V4 through V6. No ST changes. Patient was given aspirin 325 mg. For her pain she received 4 mg of IV morphine and also given albuterol 2 puffs while in the ED to help with her breathing. Chest x-ray done showed no active cardiopulmonary abnormalities. There was a small hiatal hernia. CT of the abdomen and pelvis was also done demonstrating tiny nonobstructing bilateral renal calculi. Status post cholecystectomy with stable biliary ductal dilation in the presence of a mild hiatal hernia. Jejunal diverticulum also present. Labs showed a normal full blood count, neutrophils 75.5%. Sodium was 136, potassium 4.1, BUN 14, creatinine 0.75, GFR 80, AST 77, ALT 159, alk phos 193, total bilirubin 0.4. Troponin negative x2 and BNP less than 10. Urinalysis showed 20 ketones, 250 leukocyte esterase, 4-6 red blood cells. No bacteria or nitrates present. Covid positive, flu A/B negative. PAST MEDICAL HISTORY: 1. Tobacco abuse 2. Hypertension 3. Anxiety PAST SURGICAL HISTORY: 1. Cholecystectomy 2. x1 3. Hernia repair SOCIAL HISTORY: She lives at home with her son and . Denies any need for assistive devices in order to mobilize. Denies any heavy alcohol consumption. Reports smoking half a pack a day since age 16 but more recently has unable to smoke due to feeling unwell. FAMILY HISTORY: Noncontributory ALLERGIES: No known drug allergies CURRENT MEDICATIONS: None Hospitalist ROS - Medication Medications: Active Medications Generic Name Dose Route Start Last Admin Trade Name Freq PRN Reason Stop Dose Admin Ketorolac Tromethamine 30 mg 04/29/20 17:53 04/29/20 18:22 Ketorolac Tromethamine 30 Mg/Ml Vial IVP 05/04/20 17:54 30 mg Q6H PRN Administration Pain Hospitalist Results - Labs Result Diagrams: 04/29/20 12:55 04/29/20 12:55 Lab results: WBC 8.2 thou/uL (4.8-10.8) 04/29/20 12:55 Hgb 15.5 g/dL (12.0-16.0) 04/29/20 12:55 Hct 46.6 % (36.0-47.0) 04/29/20 12:55 MCV 88.9 fL (78.0-98.0) 04/29/20 12:55 Plt Count 289 thou/uL (130-400) 04/29/20 12:55 Neutrophils % 75.5 % (42.0-75.0) H 04/29/20 12:55 Sodium 136 mmol/L (136-145) 04/29/20 12:55 Potassium 4.1 mmol/L (3.5-5.1) 04/29/20 12:55 Chloride 103 mmol/L (98-107) 04/29/20 12:55 Carbon Dioxide 17 mmol/L (22-29) L 04/29/20 12:55 BUN 14 mg/dL (9.8-20.1) 04/29/20 12:55 Creatinine 0.75 mg/dL (0.6-1.1) 04/29/20 12:55 Glucose 98 mg/dL (70-105) 04/29/20 12:55 Calcium 9.2 mg/dL (7.8-10.44) 04/29/20 12:55 Total Bilirubin 0.4 mg/dL (0.2-1.2) 04/29/20 12:55 AST 77 U/L (5-34) H 04/29/20 12:55 ALT 159 U/L (8-55) H 04/29/20 12:55 Alkaline Phosphatase 193 U/L (40-110) H 04/29/20 12:55 Troponin I Less than 0.010 ng/mL (< 0.028) 04/29/20 18:00 B-Natriuretic Peptide Less than 10.0 pg/mL (0-100) 04/29/20 12:55 Serum Total Protein 7.7 g/dL (6.0-8.3) 04/29/20 12:55 Albumin 4.4 g/dL (3.5-5.0) 04/29/20 12:55 Urine Ketones 20 mg/dL (Negative) A 04/29/20 15:31 Urine Blood Negative (Negative) 04/29/20 15:31 Urine Nitrite Negative (Negative) 04/29/20 15:31 Ur Leukocyte Esterase 250 Wilbur/uL (Negative) A 04/29/20 15:31 Urine RBC 4-6 HPF (0-3) A 04/29/20 15:31 Urine WBC 0-3 HPF (0-3) 04/29/20 15:31 Ur Squamous Epith Cells 0-3 HPF (0-3) 04/29/20 15:31 Urine Bacteria None Seen HPF (None Seen) 04/29/20 15:31 Hospitalist H&P A/P - Problem (1) Chest pain Code(s): R07.9 - CHEST PAIN, UNSPECIFIED Status: Acute Assessment and Plan: Cardiac monitoring Continue to trend troponins Continue ASA Check d-dimer, TSH, BNP, mg+ CTA if d-dimer elevated (2) Cough Code(s): R05 - COUGH Status: Acute Assessment and Plan: Irasema frost (3) COVID-19 Code(s): U07.1 - COVID-19 Status: Acute Assessment and Plan: Decadron 6 mg IV daily Zinc and Vitamin C Monitor O2 sats check d-dimer, crp, Ferritin, LDH (4) Generalized weakness Code(s): R53.1 - WEAKNESS Status: Acute (5) Hypertension Code(s): I10 - ESSENTIAL (PRIMARY) HYPERTENSION Status: Chronic Assessment and Plan: Monitor BP Resume home medications once verified (6) GERD (gastroesophageal reflux disease) Code(s): K21.9 - GASTRO-ESOPHAGEAL REFLUX DISEASE WITHOUT ESOPHAGITIS Status: Chronic Qualifiers: Esophagitis presence: without esophagitis Qualified Code(s): K21.9 - Gastro-esophageal reflux disease without esophagitis Assessment and Plan: Famotidine 20 mg PO BID (7) Anxiety Code(s): F41.9 - ANXIETY DISORDER, UNSPECIFIED Status: Chronic Assessment and Plan: Stable (8) Tobacco abuse Code(s): Z72.0 - TOBACCO USE Status: Chronic Assessment and Plan: Smoking cessation - Plan Plan: CODE STATUS FULL DVT Prophylaxis: Lovenox 40 mg SC daily Case discussed with attending who agrees with plan as above.
[2020-04-29] MEDS ORDERED: Albuterol 200 PUFF (6.7GM INHALER) INH PRN (19:12)
[2020-04-29] MEDS ORDERED: Dexamethasone 4 mg/ml Vial SLOW IVP SCH (19:15)
[2020-04-29] MEDS ORDERED: Enoxaparin Sodium 40 MG/0.4 ML SYRINGE SC SCH (19:15)
[2020-04-29 19:33] VITALS: BMI 23.6
[2020-04-29] MEDS: Famotidine 20 MG TAB PO SCH (21:02)
[2020-04-29 22:20] LABS: CRP (Inflammatory) Less than 0.50 mg/dL (= or < 0.5); Magnesium 1.5 mg/dL (1.6-2.6)
[2020-04-29] MEDS ORDERED: Magnesium 2 GM/50 ML 2 GM in Premix Bag 1 BAG IVPB SCH (23:00)
[2020-04-30] MEDS: Melatonin 3 MG TAB PO PRN (00:30)
[2020-04-30] MEDS: Ketorolac Tromethamine 30 MG/ML VIAL IVP PRN ×4 (00:56→21:10)
[2020-04-30] MEDS: predniSONE 50 MG TAB PO SCH ×3 (03:24→14:14)
[2020-04-30 05:44] LABS: #Lymphocytes 0.9 thou/uL (1.20-3.40); #Monocytes 0.1 thou/uL (0.11-0.59); #Neutrophils 4.4 thou/uL (1.40-6.50); %Basophils 0.4 % (0.0-1.0); %Eosinophils 0.3 % (0.0-10.0); %Lymphocytes 16.2 % (21.0-51.0); %Monocytes 2.5 % (0.0-10.0); %Neutrophils 80.7 % (42.0-75.0); Hemoglobin 13.8 g/dL (12.0-16.0); Mean Corpuscular HGB CONC 33.5 g/dL (32.0-36.0); Mean Corpuscular Hemoglobin 29.8 pg (27.0-31.0); Mean Corpuscular Volume 89.1 fL (78.0-98.0); Mean Platelet Volume 9.2 fL (7.4-10.4); Platelet Count 216 thou/uL (130-400); RBC Distribution Width 12.4 % (11.5-14.5); Red Blood Cell (RBC) Count 4.63 mill/uL (4.20-5.40); White Blood Cell (WBC) Count 5.5 thou/uL (4.8-10.8)
[2020-04-30 06:09] LABS: ALT (SGPT) 96 U/L (8-55); AST (SGOT) 36 U/L (5-34); Albumin 3.6 g/dL (3.5-5.0); Alkaline Phosphatase 146 U/L (40-110); Anion Gap 14 mmol/L (10-20); BUN (Urea Nitrogen) 22 mg/dL (9.8-20.1); Bilirubin, Total 0.2 mg/dL (0.2-1.2); Calc. Creatinine Clearance 68 mL/min (70-130); Calcium 9.1 mg/dL (7.8-10.44); Carbon Dioxide 20 mmol/L (22-29); Chloride 103 mmol/L (98-107); Globulin 3.2 g/dL (2.4-3.5); Glucose 185 mg/dL (70-105); Potassium 4.2 mmol/L (3.5-5.1); Protein, Total 6.8 g/dL (6.0-8.3); Sodium 133 mmol/L (136-145)
[2020-04-30] MEDS: Enoxaparin Sodium 40 MG/0.4 ML SYRINGE SC SCH (07:34)
[2020-04-30] MEDS: Dexamethasone 4 mg/ml Vial SLOW IVP SCH (07:35)
[2020-04-30] MEDS: Zinc Sulfate 220 MG CAP PO SCH (07:35)
[2020-04-30] MEDS: Famotidine 20 MG TAB PO SCH ×2 (07:36→21:09)
[2020-04-30] MEDS: Ascorbic Acid 500 mg Chewable Tablet PO SCH (07:36)
[2020-04-30] MEDS ORDERED: Metoprolol Tartrate 5 MG/5 ML VIAL IVP PRN (08:25)
[2020-04-30] MEDS ORDERED: Bisacodyl 10 MG SUPP PR PRN (08:25)
[2020-04-30] MEDS ORDERED: Magnesium 2 GM/50 ML 2 GM in Premix Bag 1 BAG IVPB SCH (09:15)
[2020-04-30] MEDS: Ondansetron PF 4 MG/2 ML Vial IVP PRN ×3 (09:19→23:41)
[2020-04-30] MEDS: Senokot S 8.6-50 MG TAB PO PRN ×2 (09:19→21:26)
[2020-04-30] MEDS: HYDROcodone/Acetaminophen 5/325 mg Tablet PO PRN ×3 (09:19→23:41)
[2020-04-30] MEDS: hydrALAZINE 20 MG/ML VIAL SLOW IVP PRN ×2 (09:28→17:53)
--- NOTE | 2020-04-30 14:19 | PDOC.HOSPP ---
- Subjective Encounter Date: 04/30/20 Encounter Time: 11:45 Subjective: Patient is lying. She is in quite a bit of distress. She had a several episodes of emesis and nauseated. Her blood pressure is also quite high. Her sats are good at 99% in the room air. Covid positive. - Objective Vital Signs & Weight: Vital Signs (12 hours) Temp Pulse Resp BP BP Pulse Ox 04/30/20 11:45 99 F 74 16 175/81 H 99 04/30/20 10:30 170/83 H 04/30/20 09:28 72 214/98 H 04/30/20 07:45 98.7 F 60 14 192/89 H 99 04/30/20 05:23 98.2 F 68 15 190/84 H 100 Weight Admit Weight 121 lb 3.2 oz Weight 121 lb 3.2 oz I&O: 04/29/20 04/30/20 05/01/20 06:59 06:59 06:59 Intake Total 1 1 Balance 1 1 Result Diagrams: 04/30/20 04:42 04/30/20 04:42 Hospitalist ROS - Medication Medications: Active Medications Generic Name Dose Route Start Last Admin Trade Name Freq PRN Reason Stop Dose Admin Acetaminophen 650 mg 04/29/20 19:02 04/29/20 21:02 Acetaminophen 325 Mg Tab PO 650 mg Q4H PRN Administration Headache/Fever/Mild Pain (1-3) Hydrocodone Bitart/Acetaminophen 1 tab 04/30/20 08:25 04/30/20 09:19 Hydrocodone/Acetaminophen 5/325 Mg Tablet PO 1 tab Q6H PRN Administration Moderate to Severe Pain (5-10) Ascorbic Acid 1,000 mg 04/30/20 09:00 04/30/20 07:36 Ascorbic Acid 500 Mg Chewable Tablet PO 1,000 mg DAILY DAVID Administration Dexamethasone 6 mg 04/30/20 09:00 04/30/20 07:35 Dexamethasone 4 Mg/Ml Vial SLOW IVP 6 mg DAILY DAVID Administration Enoxaparin Sodium 40 mg 04/30/20 09:00 04/30/20 07:34 Enoxaparin Sodium 40 Mg/0.4 Ml Syringe SC 40 mg 0900 DAVID Administration Famotidine 20 mg 04/29/20 21:00 04/30/20 07:36 Famotidine 20 Mg Tab PO 20 mg BID DAVID Administration Hydralazine HCl 10 mg 04/30/20 08:25 04/30/20 09:28 Hydralazine 20 Mg/Ml Vial SLOW IVP 10 mg Q4H PRN Administration SBP>150 Ketorolac Tromethamine 30 mg 04/29/20 17:53 04/30/20 06:59 Ketorolac Tromethamine 30 Mg/Ml Vial IVP 05/04/20 17:54 30 mg Q6H PRN Administration Pain Melatonin 3 mg 04/29/20 23:01 04/30/20 00:30 Melatonin 3 Mg Tab PO 3 mg HS PRN Administration Insomnia Metoprolol Tartrate 5 mg 04/30/20 08:25 04/30/20 11:51 Metoprolol Tartrate 5 Mg/5 Ml Vial IVP 5 mg Q4H PRN Administration for HR > 90 or SBP>150 Ondansetron HCl 4 mg 04/30/20 08:51 04/30/20 09:19 Ondansetron Pf 4 Mg/2 Ml Vial IVP 4 mg Q4H PRN Administration Nausea/Vomiting Prednisone 50 mg 04/30/20 03:00 04/30/20 07:37 Prednisone 50 Mg Tab PO 04/30/20 15:01 50 mg 0300,0900,1500 DAVID Administration Senna/Docusate Sodium 2 tab 04/30/20 08:25 04/30/20 09:19 Senokot S 8.6-50 Mg Tab PO 2 tab BIDPRN PRN Administration Constipation Sodium Chloride 10 ml 04/29/20 19:02 04/30/20 07:37 Flush - Normal Saline 10 Ml Syringe IVF 10 ml Q12H PRN Administration Saline Flush Zinc Sulfate 220 mg 04/30/20 09:00 04/30/20 07:35 Zinc Sulfate 220 Mg Cap PO 220 mg DAILY DAVID Administration - Exam General Appearance: NAD, awake alert, ill appearing Eye: PERRL, anicteric sclera ENT: normocephalic atraumatic Neck: supple, no JVD Heart: RRR, normal peripheral pulses Respiratory: CTAB, normal chest expansion Gastrointestinal: soft, normal bowel sounds Extremities: 1+ LE edema Neurological: cranial nerve grossly intact, no focal deficits Psychiatric: normal affect, A&O x 3 Hosp A/P - Plan COVID-19 Pneumonia Nausea vomiting and abdominal distress Probable pleuritic chest pain. --Decadron zinc sulfate as well as vitamin C -Few doses prednisone will be completed today. Accelerated hypertension -Scheduled Lopressor IV until her emesis resolved Deconditioning and generalized weakness -Hopefully she will improve once the Covid pneumonia acuity gets better. Stable GERD --Continue with the PPI/Pepcid Full code
[2020-04-30] MEDS ORDERED: diphenhydrAMINE 50 MG CAP PO SCH (15:00)
[2020-04-30] MEDS ORDERED: Lorazepam 1 MG TAB PO PRN (15:09)
[2020-04-30] MEDS: Metoprolol Tartrate 5 MG/5 ML VIAL IVP SCH ×2 (15:58→21:16)
--- NOTE | 2020-04-30 16:52 | CT ---
CTA Angio Chest W Con 04/30/2020 4:32 PM Indication: Elevated d-dimer with chest pain and shortness of breath Technique: Multiple CTA images were obtained of the thorax with IV contrast. 3-D rendering: MIP arpita nstructed images were created and reviewed. Comparison: CT the chest, abdomen and pelvis dated January 12, [address] the abdomen and pelvis w ithout contrast dated April 29, 2020 Findings: Pulmonary arteries: No central or segmental pulmonary embolus is evident. Heart and Aorta: Normal appearing. Mediastinum:There is a large hiatal hernia. Lungs:The lungs are clear. Pleural space: Clear. Upper Abdomen: There is stable intrahepatic and extra hepatic biliary ductal dilatation. Small cyst within the right hepatic lobe are stable appearing. Osseous Structures: There is scattered degenerative and osteoarthritic change present. Soft tissues:No abnormality. Other findings:None. Impression: No central or segmental pulmonary embolus.
[2020-04-30] MEDS ORDERED: Nicotine 14 MG PATCH TD SCH (18:30)
[2020-05-01] MEDS: Morphine 2 MG/ML VIAL SLOW IVP PRN ×2 (01:01→05:30)
[2020-05-01] MEDS: Melatonin 3 MG TAB PO PRN (01:01)
[2020-05-01] MEDS: Metoprolol Tartrate 5 MG/5 ML VIAL IVP SCH ×2 (03:45→08:39)
[2020-05-01] MEDS: Ketorolac Tromethamine 30 MG/ML VIAL IVP PRN (06:44)
[2020-05-01] MEDS: Ondansetron PF 4 MG/2 ML Vial IVP PRN (06:44)
[2020-05-01 07:09] LABS: Band 1 % (5-11); Hemoglobin 13.5 g/dL (12.0-16.0); Lymphocytes 12 % (21-51); MDiff Complete? YES; Mean Corpuscular HGB CONC 34.3 g/dL (32.0-36.0); Mean Corpuscular Hemoglobin 30.7 pg (27.0-31.0); Mean Corpuscular Volume 89.6 fL (78.0-98.0); Mean Platelet Volume 8.5 fL (7.4-10.4); Monocytes 1 % (0-10); Neutrophil 86 % (42-75); Platelet Count 269 thou/uL (130-400); Platelet Morphology Comment Appears Adequate; RBC Distribution Width 12.7 % (11.5-14.5); RBC Morphology Normal; Red Blood Cell (RBC) Count 4.39 mill/uL (4.20-5.40); White Blood Cell (WBC) Count 20.6 thou/uL (4.8-10.8)
[2020-05-01] MEDS: Enoxaparin Sodium 40 MG/0.4 ML SYRINGE SC SCH (08:33)
[2020-05-01] MEDS: HYDROcodone/Acetaminophen 5/325 mg Tablet PO PRN (08:34)
[2020-05-01] MEDS: Famotidine 20 MG TAB PO SCH (08:34)
[2020-05-01] MEDS: Dexamethasone 4 mg/ml Vial SLOW IVP SCH (08:34)
[2020-05-01] MEDS: Ascorbic Acid 500 mg Chewable Tablet PO SCH (08:35)
[2020-05-01] MEDS: Zinc Sulfate 220 MG CAP PO SCH (08:35)
[2020-05-01 09:42] VITALS: BP 117/77; TEMP 98.4
--- NOTE | 2020-05-01 17:13 | PDOC.DS.DS ---
Provider - Provider Date of Admission: 04/30/20 15:51 Admitting Provider: Familia Gagnon DO Primary Care Physician: NO PCP PROVIDER Course - Hospital Course Hospital Course: COVID-19 Pneumonia Nausea vomiting and abdominal distress Probable pleuritic chest pain. --Decadron zinc sulfate as well as vitamin C -Few doses prednisone will be completed today. Accelerated hypertension -Scheduled Lopressor IV until her emesis resolved Deconditioning and generalized weakness -Hopefully she will improve once the Covid pneumonia acuity gets better. Stable GERD --Continue with the PPI/Pepcid Full code pt left AMA on Resuscitation Status: 04/29/20 19:02 Resuscitation Status Routine Co-Sign Provider: Resuscitation Status: FULL: Full Resuscitation - Labs Lab Results: 05/01/20 06:15 04/30/20 04:42 Abnormal Lab Results - Last 48 hrs 04/29/20 21:00: Magnesium 1.5 L 04/29/20 21:00: D-Dimer 1.64 H 04/29/20 21:00: TSH 3rd Generation 0.2767 L 04/30/20 04:42: Sodium 133 L, Carbon Dioxide 20 L, BUN 22 H, AST 36 H, ALT 96 H, Alkaline Phosphatase 146 H, Albumin/Globulin Ratio 1.1 L 04/30/20 04:42: Neutrophils % 80.7 H, Lymphocytes % 16.2 L, Lymphocytes # 0.9 L, Monocytes # 0.1 L 05/01/20 06:15: WBC 20.6 H, Neutrophils % (Manual) 86 H, Band Neuts % (Manual) 1 L, Lymphocytes % (Manual) 12 L - Physical Exam Vitals: Vital Signs (12 hours) Temp Pulse Resp BP BP Pulse Ox 05/01/20 08:40 98.4 F 99 18 117/77 117/77 99 Weight Admit Weight 121 lb 3.2 oz Weight 124 lb 8 oz Physical Exam: The patient was seen and examined on the day of discharge. Plan - Discharge Medications Home Medications: Medication Instructions Recorded Confirmed Type No Known 04/30/20 04/30/20 History Allergies: Iodinated Contrast Media [Iodinated Contrast Media - IV Dye] Allergy (Mild, Verified 04/30/20 00:02) Hives - Follow up Plan Referrals: PROVIDER,NO PCP [Primary Care Provider] - Disposition: LEFT AGAINST MEDICAL ADVICE Quality - Care Measures CORE MEASURES:: N/A
--- NOTE | 2020-05-04 10:50 | EKG ---
Test Reason : Blood Pressure : / mmHG Vent. Rate : 099 BPM Atrial Rate : 099 BPM P-R Int : 122 ms QRS Dur : 066 ms QT Int : 336 ms P-R-T Axes : 077 007 123 degrees QTc Int : 431 ms Normal sinus rhythm Right atrial enlargement Nonspecific T wave abnormality Abnormal ECG Confirmed by RAINE VERONICA, MICHELLE Briggs ([id number]), website/blog editor BENJAMIN DOMINGUEZ ([id number]) on 05/04/2020 10:49:52 AM Referred By: Confirmed By:MICHELLE NI MD
== END 2020-05-01 09:36 | disposition left against medical advice (07) | DRG 177 ==
LOC: ERS 11:37 → ERHOLD 16:24 → 2SW 17:45 → OBSVTOIN 04-30 15:51
PROVIDERS: ADMIT Family Medicine; ATTEND Internal Medicine
PROC: 8E0ZXY6 Isolation (ICD-10-PCS; principal; 2020-04-30)
DX: U07.1 COVID-19 (principal); J12.89 Other viral pneumonia; N20.0 Calculus of kidney; I10 Essential (primary) hypertension; F41.9 Anxiety disorder, unspecified; F17.210 Nicotine dependence, cigarettes, uncomplicated; R53.81 Other malaise; E05.90 Thyrotoxicosis, unspecified without thyrotoxic crisis or storm; K21.9 Gastro-esophageal reflux disease without esophagitis; Z90.49 Acquired absence of other specified parts of digestive tract
CPT/HCPCS: 0240U; 36415; 71045; 71275; 74176; 80053; 81003; 81015; 82728; 83615; 83735; 83880; 84439; 84443; 84484; 85025; 85379; 86140; 93005; 94664; 94760; 96365; 96374; 96375; 96376; G0378; J0360; J1100; J1650; J1885; J2270; J2405; J3475; J7512

== ENCOUNTER 2020-11-12 16:19 | Emergency (ER) | payer OTHER | END 2020-11-12 17:52 | disposition left against medical advice (07) | LOC: ERS 16:19 | DX: Z53.21 Procedure and treatment not carried out due to patient leaving prior to being seen by health care provider (principal) | CPT/HCPCS: 71045; 93005 ==

== ENCOUNTER 2020-11-14 09:20 | Emergency (ER) | payer OTHER ==
[2020-11-14] MEDS ORDERED: diphenhydrAMINE 50 MG/ML VIAL ONE (10:26)
[2020-11-14] MEDS ORDERED: methylPREDNISolone Sod Succ/PF 125 MG/2 ML VIAL ONE (10:26)
[2020-11-14] MEDS ORDERED: Ondansetron PF 4 MG/2 ML Vial ONE (10:26)
[2020-11-14] MEDS ORDERED: Famotidine/PF 20 mg/2ml Vial ONE (10:26)
[2020-11-14 10:41] LABS: #Eosinphils 0.1 thou/uL (0.0-0.7); #Lymphocytes 1.9 thou/uL (1.20-3.40); #Monocytes 1.2 thou/uL (0.11-0.59); #Neutrophils 16.5 thou/uL (1.40-6.50); %Eosinophils 0.7 % (0.0-10.0); %Lymphocytes 9.5 % (21.0-51.0); %Monocytes 6.3 % (0.0-10.0); %Neutrophils 83.5 % (42.0-75.0); Mean Corpuscular HGB CONC 33.4 g/dL (32.0-36.0); Mean Corpuscular Hemoglobin 30.1 pg (27.0-31.0); Mean Corpuscular Volume 89.9 fL (78.0-98.0); Platelet Count 466 thou/uL (130-400); RBC Distribution Width 12.9 % (11.5-14.5); Red Blood Cell (RBC) Count 3.65 mill/uL (4.20-5.40); White Blood Cell (WBC) Count 19.7 thou/uL (4.8-10.8)
[2020-11-14 11:09] LABS: ALT (SGPT) 9 U/L (8-55); AST (SGOT) 10 U/L (5-34); Albumin 3.3 g/dL (3.5-5.0); Alkaline Phosphatase 105 U/L (40-110); Anion Gap 15 mmol/L (10-20); BUN (Urea Nitrogen) 9 mg/dL (9.8-20.1); Bilirubin, Total 0.2 mg/dL (0.2-1.2); Calc. Creatinine Clearance 0 mL/min (70-130); Calcium 8.7 mg/dL (7.8-10.44); Carbon Dioxide 20 mmol/L (22-29); Chloride 101 mmol/L (98-107); Globulin 3.3 g/dL (2.4-3.5); Glucose 163 mg/dL (70-105); Lipase 32 U/L (8-78); Potassium 3.4 mmol/L (3.5-5.1); Protein, Total 6.6 g/dL (6.0-8.3); Sodium 133 mmol/L (136-145)
== END 2020-11-14 12:38 | disposition home or self-care (01) ==
LOC: ERS 09:20
DX: R91.8 Other nonspecific abnormal finding of lung field (principal); I10 Essential (primary) hypertension; F17.210 Nicotine dependence, cigarettes, uncomplicated; Z79.899 Other long term (current) drug therapy
CPT/HCPCS: 71275; 80053; 83690; 84484; 85025; 93005; 96374; 96375; J1200; J2405; J2930; S0028

== ENCOUNTER 2020-11-20 00:32 | Emergency (ER) | payer OTHER, SELFPAY ==
[2020-11-20] MEDS ORDERED: Ketorolac Tromethamine 30 MG/ML VIAL ONE (03:05)
== END 2020-11-20 04:55 | disposition home or self-care (01) ==
LOC: ERS 00:32
DX: J06.9 Acute upper respiratory infection, unspecified (principal); I10 Essential (primary) hypertension; F17.210 Nicotine dependence, cigarettes, uncomplicated; Z79.899 Other long term (current) drug therapy
CPT/HCPCS: 71045; 96372; J1885

== ENCOUNTER 2021-02-13 10:30 | Outpatient (CLI) | payer SELFPAY | END 2021-02-13 10:31 | disposition home or self-care (01) | LOC: RAD 10:30 | PROVIDERS: ATTEND Internal Medicine Pulmonary Disease | DX: R06.00 Dyspnea, unspecified (principal); J98.4 Other disorders of lung; K44.9 Diaphragmatic hernia without obstruction or gangrene | CPT/HCPCS: 71046 ==

== ENCOUNTER 2021-05-21 09:37 | Outpatient (CLI) | payer OTHER | END 2021-05-21 09:38 | disposition home or self-care (01) | LOC: MRI 09:37 | PROVIDERS: ATTEND Pain Medicine Interventional Pain Medicine | DX: M47.26 Other spondylosis with radiculopathy, lumbar region (principal) | CPT/HCPCS: 72148 ==

== ENCOUNTER 2021-10-02 17:46 | Emergency (ER) | payer OTHER ==
[2021-10-02] MEDS ORDERED: Boostrix 0.5 ML (Tdap) VIAL ONE (19:34)
== END 2021-10-02 19:53 | disposition home or self-care (01) ==
LOC: ERS 17:46
DX: L02.411 Cutaneous abscess of right axilla (principal); I10 Essential (primary) hypertension; F17.210 Nicotine dependence, cigarettes, uncomplicated; Z23 Encounter for immunization; Z79.899 Other long term (current) drug therapy
CPT/HCPCS: 10060; 87070; 87077; 87186; 87205; 90471; 90715

== ENCOUNTER 2021-11-08 15:16 | Emergency (ER) | payer OTHER | END 2021-11-08 16:34 | disposition home or self-care (01) | LOC: ERS 15:16 | DX: M54.41 Lumbago with sciatica, right side (principal); I10 Essential (primary) hypertension; F17.210 Nicotine dependence, cigarettes, uncomplicated; Z79.899 Other long term (current) drug therapy ==

== ENCOUNTER 2022-02-03 10:39 | Outpatient (CLI) | payer OTHER | END 2022-02-03 10:40 | disposition home or self-care (01) | LOC: RAD-FRANK 10:39 | DX: M25.511 Pain in right shoulder (principal) ==

== ENCOUNTER 2022-03-22 01:45 | Emergency (ER) | payer OTHER ==
[2022-03-22] MEDS ORDERED: Morphine 4 MG/ML VIAL ONE (04:16)
[2022-03-22] MEDS ORDERED: Ketorolac Tromethamine 30 MG/ML VIAL ONE (04:16)
== END 2022-03-22 05:05 | disposition home or self-care (01) ==
LOC: ERS 01:45
DX: K13.70 Unspecified lesions of oral mucosa (principal); I10 Essential (primary) hypertension; F17.210 Nicotine dependence, cigarettes, uncomplicated
CPT/HCPCS: 96372; 99282; J1885; J2270

== ENCOUNTER 2022-07-24 09:05 | Outpatient (CLI) | payer OTHER | END 2022-07-24 09:06 | disposition home or self-care (01) | LOC: RAD-FRANK 09:05 | PROVIDERS: ATTEND Nurse Practitioner Family | DX: R05.1 Acute cough (principal); K46.9 Unspecified abdominal hernia without obstruction or gangrene | CPT/HCPCS: 71046 ==

== ENCOUNTER 2022-09-12 17:21 | Inpatient (IN) | payer OTHER ==
[2022-09-12 18:32] VITALS: BMI 22.4
[2022-09-12] MEDS ORDERED: HYDROcodone/Acetaminophen 5/325 mg Tablet PO PRN (18:52)
[2022-09-12] MEDS: HYDROcodone/Acetaminophen 5/325 mg Tablet PO PRN (20:28)
[2022-09-12] MEDS: Azithromycin 500 MG in Sodium Chloride 0.9% 250 ML 250 ML IVPB SCH (20:28)
[2022-09-12 21:51] LABS: Troponin I Less than 0.010 ng/mL (< 0.028)
[2022-09-12] MEDS: Guaifenesin DM 100-10/5 ML UDCUP PO PRN (22:00)
[2022-09-12] MEDS: traZODone HCl 50 MG TAB PO PRN (22:01)
[2022-09-12] MEDS: Ondansetron PF 4 MG/2 ML Vial IVP PRN (22:26)
[2022-09-13] MEDS: Guaifenesin DM 100-10/5 ML UDCUP PO PRN ×2 (04:53→20:10)
[2022-09-13] MEDS: Ondansetron PF 4 MG/2 ML Vial IVP PRN ×3 (04:53→16:59)
[2022-09-13] MEDS: HYDROcodone/Acetaminophen 5/325 mg Tablet PO PRN ×4 (04:56→21:42)
[2022-09-13 06:40] LABS: Eosinophils 2 % (0-10); Hemoglobin 8.7 g/dL (12.0-16.0); Hypochromia SLIGHT = 6-15 cells (100X) (0-5/hpf); Lymphocytes 2 % (21-51); MDiff Complete? YES; Mean Corpuscular HGB CONC 32.2 g/dL (32.0-36.0); Mean Corpuscular Hemoglobin 21.4 pg (27.0-31.0); Mean Corpuscular Volume 66.6 fl (78.0-98.0); Monocytes 8 % (0-10); Neutrophil 88 % (42-75); Platelet Count 508 10x3/uL (130-400); Platelet Morphology Comment Appears Increased; RBC Distribution Width 17.2 % (11.5-14.5); Red Blood Cell (RBC) Count 4.03 mill/uL (4.20-5.40); White Blood Cell (WBC) Count 21.4 10x3/uL (4.8-10.8)
[2022-09-13 06:42] LABS: Anion Gap 14 mmol/L (10-20); BUN (Urea Nitrogen) 8 mg/dL (9.8-20.1); Calc. Creatinine Clearance 72 mL/min (70-130); Calcium 9.1 mg/dL (7.8-10.44); Carbon Dioxide 20 mmol/L (22-29); Chloride 105 mmol/L (98-107); Estimated GFR 100; Glucose 141 mg/dL (70-105); Potassium 3.5 mmol/L (3.5-5.1); Sodium 135 mmol/L (136-145); Troponin I Less than 0.010 ng/mL (< 0.028)
[2022-09-13] MEDS ORDERED: Albuterol 200 PUFF (6.7GM INHALER) INH PRN (09:10)
[2022-09-13 09:14] LABS: Troponin I Less than 0.010 ng/mL (< 0.028)
[2022-09-13] MEDS: Clindamycin/D5W 900 MG in Premix Bag 1 BAG IVPB SCH ×2 (10:43→16:59)
[2022-09-13] MEDS: cefTRIAXone\\ROCEPHIN 2 GM in Sodium Chloride 0.9% 100 ML IVPB SCH (12:02)
[2022-09-13] MEDS ORDERED: Nicotine 21 MG PATCH TD SCH (14:15)
[2022-09-13] MEDS ORDERED: Ipratropium Bromide 2.5 ml Neb NEB PRN (17:02)
[2022-09-13] MEDS: Azithromycin 500 MG in Sodium Chloride 0.9% 250 ML 250 ML IVPB SCH (19:00)
[2022-09-13] MEDS ORDERED: traMADol HCl 50 MG TAB PO PRN (19:38)
[2022-09-13] MEDS ORDERED: Acetaminophen 500 MG TAB PO PRN (19:39)
[2022-09-13] MEDS: guaiFENesin ER 600 MG TAB PO SCH (20:14)
[2022-09-13] MEDS: Promethazine HCl 12.5 MG in Sodium Chloride 0.9% 50 ML IVPB PRN (21:11)
[2022-09-14] MEDS: Clindamycin/D5W 900 MG in Premix Bag 1 BAG IVPB SCH ×3 (01:10→17:27)
[2022-09-14] MEDS: Promethazine HCl 12.5 MG in Sodium Chloride 0.9% 50 ML IVPB PRN ×3 (03:10→18:03)
[2022-09-14] MEDS: HYDROcodone/Acetaminophen 5/325 mg Tablet PO PRN ×3 (06:22→20:03)
[2022-09-14 06:52] LABS: #Eosinphils 0.1 thou/uL (0.0-0.7); #Lymphocytes 1.5 thou/uL (1.20-3.40); #Monocytes 0.9 thou/uL (0.11-0.59); #Neutrophils 14.3 thou/uL (1.40-6.50); %Basophils 0.2 % (0.0-1.0); %Eosinophils 0.5 % (0.0-10.0); %Monocytes 5.5 % (0.0-10.0); %Neutrophils 84.8 % (42.0-75.0); Hemoglobin 8.1 g/dL (12.0-16.0); Mean Corpuscular HGB CONC 31.6 g/dL (32.0-36.0); Mean Corpuscular Volume 66.4 fl (78.0-98.0); Mean Platelet Volume 8.8 fL (7.4-10.4); Platelet Count 578 10x3/uL (130-400); Red Blood Cell (RBC) Count 3.87 mill/uL (4.20-5.40); White Blood Cell (WBC) Count 16.9 10x3/uL (4.8-10.8)
[2022-09-14 07:23] LABS: AST (SGOT) 66 U/L (5-34); Bilirubin, Total 0.2 mg/dL (0.2-1.2); Calcium 8.7 mg/dL (7.8-10.44); Chloride 102 mmol/L (98-107); Potassium 3.7 mmol/L (3.5-5.1); Sodium 134 mmol/L (136-145)
[2022-09-14 07:25] LABS: Albumin 3.3 g/dL (3.5-5.0)
[2022-09-14 07:28] LABS: Globulin 3.4 g/dL (2.4-3.5); Glucose 99 mg/dL (70-105); Protein, Total 6.7 g/dL (6.0-8.3)
[2022-09-14 07:29] LABS: Carbon Dioxide 19 mmol/L (22-29); Ferritin 59.24 ng/mL (10-291)
[2022-09-14 07:30] LABS: Alkaline Phosphatase 201 U/L (40-110)
[2022-09-14 07:31] LABS: Calc. Creatinine Clearance 69 mL/min (70-130); Estimated GFR 95
[2022-09-14 07:32] LABS: BUN (Urea Nitrogen) 10 mg/dL (9.8-20.1)
[2022-09-14 07:33] LABS: Iron Binding Capacity, Total 259 mcg/dL (265-497)
[2022-09-14 07:34] LABS: ALT (SGPT) 90 U/L (8-55); Iron 9 ug/dL (50-170)
[2022-09-14] MEDS: guaiFENesin ER 600 MG TAB PO SCH ×2 (08:08→20:03)
[2022-09-14] MEDS: Saccharomyces boulardii 250 MG CAP PO SCH (08:08)
[2022-09-14] MEDS: Ondansetron PF 4 MG/2 ML Vial IVP PRN ×2 (08:14→15:09)
[2022-09-14] MEDS: Nicotine 21 MG PATCH TD SCH (08:17)
[2022-09-14 08:39] LABS: Anion Gap 17 mmol/L (10-20)
[2022-09-14] MEDS: cefTRIAXone\\ROCEPHIN 2 GM in Sodium Chloride 0.9% 100 ML IVPB SCH (11:55)
[2022-09-14] MEDS ORDERED: GoLYTELY 4,000 ml Bottle PO SCH (17:00)
[2022-09-14] MEDS: Azithromycin 500 MG in Sodium Chloride 0.9% 250 ML 250 ML IVPB SCH (18:26)
[2022-09-14] MEDS: Guaifenesin DM 100-10/5 ML UDCUP PO PRN (20:11)
[2022-09-15] MEDS: Promethazine HCl 12.5 MG in Sodium Chloride 0.9% 50 ML IVPB PRN ×3 (00:41→20:46)
[2022-09-15] MEDS: Clindamycin/D5W 900 MG in Premix Bag 1 BAG IVPB SCH ×3 (01:17→17:22)
[2022-09-15] MEDS: Guaifenesin DM 100-10/5 ML UDCUP PO PRN ×2 (01:55→20:46)
[2022-09-15] MEDS: HYDROcodone/Acetaminophen 5/325 mg Tablet PO PRN ×3 (01:56→18:20)
[2022-09-15 07:06] LABS: #Basophils 0.1 thou/uL (0.0-0.2); #Eosinphils 0.1 thou/uL (0.0-0.7); #Lymphocytes 1.7 thou/uL (1.20-3.40); #Monocytes 0.7 thou/uL (0.11-0.59); #Neutrophils 9.4 thou/uL (1.40-6.50); %Basophils 0.4 % (0.0-1.0); %Eosinophils 0.7 % (0.0-10.0); %Lymphocytes 13.9 % (21.0-51.0); %Monocytes 6.1 % (0.0-10.0); %Neutrophils 78.8 % (42.0-75.0); Mean Corpuscular HGB CONC 30.6 g/dL (32.0-36.0); Mean Corpuscular Volume 65.3 fl (78.0-98.0); Mean Platelet Volume 9.1 fL (7.4-10.4); Platelet Count 587 10x3/uL (130-400); RBC Distribution Width 17.1 % (11.5-14.5); Red Blood Cell (RBC) Count 3.98 mill/uL (4.20-5.40); White Blood Cell (WBC) Count 11.9 10x3/uL (4.8-10.8)
[2022-09-15] MEDS ORDERED: GoLYTELY 4,000 ml Bottle PO SCH (07:15)
[2022-09-15] MEDS: Saccharomyces boulardii 250 MG CAP PO SCH (07:25)
[2022-09-15] MEDS: guaiFENesin ER 600 MG TAB PO SCH ×2 (07:25→20:45)
[2022-09-15 07:26] LABS: Anion Gap 16 mmol/L (10-20); BUN (Urea Nitrogen) 11 mg/dL (9.8-20.1); CRP (Inflammatory) 11.78 mg/dL (= or < 0.5); Calc. Creatinine Clearance 73 mL/min (70-130); Calcium 8.7 mg/dL (7.8-10.44); Carbon Dioxide 26 mmol/L (22-29); Chloride 100 mmol/L (98-107); Estimated GFR 101; Glucose 91 mg/dL (70-105); Potassium 3.6 mmol/L (3.5-5.1); Sodium 138 mmol/L (136-145)
[2022-09-15] MEDS: Nicotine 21 MG PATCH TD SCH (07:53)
[2022-09-15] MEDS ORDERED: Indomethacin 50 MG SUPP ONE (09:40)
[2022-09-15] MEDS ORDERED: Iopamidol 0 ML ONE (09:41)
[2022-09-15] MEDS ORDERED: cefTRIAXone (ROCEPHIN) 2 GM VIAL ONE (11:44)
[2022-09-15] MEDS ORDERED: Sodium Chloride 0.9% 100 ML ONE (11:44)
[2022-09-15] MEDS ORDERED: PHENYLEPHRINE-NS 100 MCG/ML 10 ML SYRINGE ONE (12:13)
[2022-09-15] MEDS ORDERED: Lidocaine 1% PF 5 ML VIAL ONE (12:13)
[2022-09-15] MEDS ORDERED: PROPOFOL 200 MG/20 ML VIAL ONE (12:15)
[2022-09-15] MEDS: cefTRIAXone\\ROCEPHIN 2 GM in Sodium Chloride 0.9% 100 ML IVPB SCH (12:31)
[2022-09-15] MEDS ORDERED: Promethazine HCl 25 MG/ML VIAL IM PRN (12:52)
[2022-09-15] MEDS ORDERED: Ondansetron HCl/PF 4 MG/2 ML Vial IVP PRN (12:52)
[2022-09-15] MEDS: Ondansetron PF 4 MG/2 ML Vial IVP PRN (13:55)
[2022-09-15] MEDS: Azithromycin 500 MG in Sodium Chloride 0.9% 250 ML 250 ML IVPB SCH (18:13)
[2022-09-15] MEDS: traZODone HCl 50 MG TAB PO PRN (20:45)
[2022-09-16] MEDS: Clindamycin/D5W 900 MG in Premix Bag 1 BAG IVPB SCH ×3 (02:45→17:09)
[2022-09-16] MEDS: Promethazine HCl 12.5 MG in Sodium Chloride 0.9% 50 ML IVPB PRN (03:29)
[2022-09-16] MEDS: Guaifenesin DM 100-10/5 ML UDCUP PO PRN ×2 (03:29→07:39)
[2022-09-16] MEDS: HYDROcodone/Acetaminophen 5/325 mg Tablet PO PRN ×4 (03:30→16:01)
[2022-09-16 06:45] LABS: #Lymphocytes 1.2 thou/uL (1.20-3.40); #Monocytes 0.5 thou/uL (0.11-0.59); #Neutrophils 8.3 thou/uL (1.40-6.50); %Basophils 0.3 % (0.0-1.0); %Eosinophils 0.5 % (0.0-10.0); %Lymphocytes 11.7 % (21.0-51.0); %Monocytes 5.3 % (0.0-10.0); %Neutrophils 82.1 % (42.0-75.0); Hemoglobin 7.7 g/dL (12.0-16.0); Mean Corpuscular Hemoglobin 20.1 pg (27.0-31.0); Mean Corpuscular Volume 64.8 fl (78.0-98.0); Mean Platelet Volume 9.4 fL (7.4-10.4); Platelet Count 558 10x3/uL (130-400); Red Blood Cell (RBC) Count 3.82 mill/uL (4.20-5.40); White Blood Cell (WBC) Count 10.1 10x3/uL (4.8-10.8)
[2022-09-16 06:52] LABS: Anion Gap 16 mmol/L (10-20); BUN (Urea Nitrogen) 9 mg/dL (9.8-20.1); Calc. Creatinine Clearance 75 mL/min (70-130); Calcium 8.4 mg/dL (7.8-10.44); Carbon Dioxide 25 mmol/L (22-29); Chloride 99 mmol/L (98-107); Estimated GFR 101; Glucose 95 mg/dL (70-105); Potassium 3.2 mmol/L (3.5-5.1); Sodium 137 mmol/L (136-145)
[2022-09-16] MEDS: guaiFENesin ER 600 MG TAB PO SCH (07:39)
[2022-09-16] MEDS: Saccharomyces boulardii 250 MG CAP PO SCH (07:39)
[2022-09-16] MEDS: Ondansetron PF 4 MG/2 ML Vial IVP PRN (07:40)
[2022-09-16] MEDS: Nicotine 21 MG PATCH TD SCH (07:40)
[2022-09-16] MEDS: cefTRIAXone\\ROCEPHIN 2 GM in Sodium Chloride 0.9% 100 ML IVPB SCH (11:31)
[2022-09-16 15:44] VITALS: BP 177/72; TEMP 98.2
== END 2022-09-16 17:22 | disposition home or self-care (01) | DRG 194 ==
LOC: T4-A 17:21 → UNDOADMIN 17:21 → T4-A 18:21
PROVIDERS: ADMIT Family Medicine; ATTEND Hospitalist
PROC: 3E03329 Introduction of Other Anti-infective into Peripheral Vein, Percutaneous Approach (ICD-10-PCS; principal; 2022-09-15)
PROC: 0DB98ZX Excision of Duodenum, Via Natural or Artificial Opening Endoscopic, Diagnostic (ICD-10-PCS; 2022-09-15)
PROC: 0DB78ZX Excision of Stomach, Pylorus, Via Natural or Artificial Opening Endoscopic, Diagnostic (ICD-10-PCS; 2022-09-15)
PROC: 0DB58ZX Excision of Esophagus, Via Natural or Artificial Opening Endoscopic, Diagnostic (ICD-10-PCS; 2022-09-15)
PROC: 0DJD8ZZ Inspection of Lower Intestinal Tract, Via Natural or Artificial Opening Endoscopic (ICD-10-PCS; 2022-09-15)
DX: J15.9 Unspecified bacterial pneumonia (principal); B37.81 Candidal esophagitis; I10 Essential (primary) hypertension; F17.210 Nicotine dependence, cigarettes, uncomplicated; D50.0 Iron deficiency anemia secondary to blood loss (chronic); R91.8 Other nonspecific abnormal finding of lung field; R74.01 Elevation of levels of liver transaminase levels; K64.4 Residual hemorrhoidal skin tags; K64.8 Other hemorrhoids; K25.9 Gastric ulcer, unspecified as acute or chronic, without hemorrhage or perforation; Z90.49 Acquired absence of other specified parts of digestive tract; Z91.041 Radiographic dye allergy status
CPT/HCPCS: 36415; 80048; 80053; 82607; 82728; 83540; 83550; 84145; 84484; 85025; 86140; 88305; 93005; 93010; J0456; J0696; J1650; J2405; J2550; J2704; J3490; J7050; Q9967

== ENCOUNTER 2023-10-19 09:34 | Outpatient (CLI) | payer MEDICARE | END 2023-10-19 09:35 | disposition home or self-care (01) | LOC: SCSMRI 09:34 | PROVIDERS: ATTEND Internal Medicine | DX: M47.26 Other spondylosis with radiculopathy, lumbar region (principal) | CPT/HCPCS: 72148 ==

== ENCOUNTER 2023-11-30 19:20 | Emergency (ER) | payer MEDICARE ==
[~2023-11-30 19:20] MED LIST: Iopamidol-370 76% 500 ML MDV (1 ML CHARGE) ONE
[2023-11-30 20:02] LABS: Bacteria/HPF None Seen HPF (None Seen); Bilirubin Negative (Negative); Blood, Urine Negative (Negative); CAUTI Indications for Culture Pelvic or flank pain; Clarity Clear (Clear); Glucose, Urine (Dipstick) Normal (Negative); Ketone, Urine Trace mg/dL (Negative); Leukocyte Negative Leu/uL (Negative); Nitrite Negative (Negative); Protein, Urine (Dipstick) 20 mg/dL (Neg-Trace); RBC/HPF 0-3 HPF (0-3); Specific Gravity, Urine 1.032 (1.002-1.036); Squamous Epithelial 0-3 HPF (0-3); Urobilinogen 3 mg/dL (Less than 2); WBC/HPF 0-3 HPF (0-3)
[2023-11-30 20:03] LABS: Urine Culture Reflex No No
[2023-11-30 20:09] LABS: #Basophils 0.04 10x3/uL (0.0-0.2); %Basophils 0.5 % (0.0-1.0); %Eosinophils 1.4 % (0.0-10.0); %Lymphocytes 30.8 % (21.0-51.0); %Monocytes 6.5 % (0.0-10.0); %Neutrophils 60.6 % (42.0-75.0); Hematocrit 44.6 % (36.0-47.0); Mean Corpuscular HGB CONC 33.6 g/dL (32.0-36.0); Mean Corpuscular Hemoglobin 30.7 pg (27.0-31.0); Mean Corpuscular Volume 91.2 fL (78.0-98.0); Mean Platelet Volume 10.3 fL (7.4-10.4); Platelet Count 322 10x3/uL (130-400); RBC Distribution Width 13.5 % (11.5-14.5); Red Blood Cell (RBC) Count 4.89 mill/uL (4.20-5.40)
[2023-11-30 20:27] LABS: ALT (SGPT) 64 U/L (8-55); AST (SGOT) 30 U/L (5-34); Albumin 4.1 g/dL (3.5-5.0); Alkaline Phosphatase 150 U/L (40-110); Anion Gap 15 mmol/L (10-20); BUN (Urea Nitrogen) 19 mg/dL (9.8-20.1); Bilirubin, Total 0.6 mg/dL (0.2-1.2); Calc. Creatinine Clearance 0 mL/min (70-130); Calcium 9.5 mg/dL (7.8-10.44); Carbon Dioxide 25 mmol/L (22-29); Chloride 99 mmol/L (98-107); Estimated GFR 66; Globulin 3.2 g/dL (2.4-3.5); Glucose 128 mg/dL (70-105); Lipase 12 U/L (8-78); Magnesium 1.7 mg/dL (1.6-2.6); Potassium 3.3 mmol/L (3.5-5.1); Protein, Total 7.3 g/dL (6.0-8.3); Sodium 136 mmol/L (136-145)
[2023-11-30 20:36] LABS: Troponin I Less than 0.010 ng/mL (< 0.028)
[2023-11-30] MEDS ORDERED: Ondansetron PF 4 MG/2 ML Vial ONE (21:54)
[2023-11-30] MEDS ORDERED: Morphine 2 MG/ML VIAL ONE (21:54)
[2023-11-30] MEDS ORDERED: Sucralfate 1 GM/10 ML UDCUP ONE (21:54)
[2023-11-30] MEDS ORDERED: Pantoprazole 40 MG VIAL ONE (21:57)
[2023-11-30] MEDS ORDERED: Lidocaine 2% Viscous 10 mL, Alum & Magn 30 mL SSW SCH (22:00)
== END 2023-12-01 00:01 | disposition home or self-care (01) ==
LOC: ERS 19:20
DX: R10.9 Unspecified abdominal pain (principal); K76.0 Fatty (change of) liver, not elsewhere classified; R19.7 Diarrhea, unspecified; R11.2 Nausea with vomiting, unspecified; R94.5 Abnormal results of liver function studies; I10 Essential (primary) hypertension; F17.210 Nicotine dependence, cigarettes, uncomplicated; Z79.899 Other long term (current) drug therapy
CPT/HCPCS: 71045; 74177; 80053; 81001; 83690; 83735; 84484; 85025; 93005; C9113; J2272; J2405; 36415; 96361; 96374; 96375; Q9967

== ENCOUNTER 2024-06-08 10:25 | Emergency (ER) | payer MEDICARE ==
[2024-06-08] MEDS ORDERED: Morphine 2 MG/ML VIAL ONE (11:12)
[2024-06-08] MEDS ORDERED: Ondansetron PF 4 MG/2 ML Vial ONE (11:12)
[2024-06-08 12:37] LABS: #Basophils Less than 0.03 10x3/uL (0.0-0.2); %Basophils 0.1 % (0.0-1.0); %Eosinophils 0.6 % (0.0-10.0); %Lymphocytes 9.4 % (21.0-51.0); %Monocytes 5.6 % (0.0-10.0); Hematocrit 43.6 % (36.0-47.0); Hemoglobin 14.7 g/dL (12.0-16.0); Mean Corpuscular HGB CONC 33.7 g/dL (32.0-36.0); Mean Corpuscular Hemoglobin 30.8 pg (27.0-31.0); Mean Corpuscular Volume 91.4 fL (78.0-98.0); Mean Platelet Volume 10.6 fL (7.4-10.4); Platelet Count 219 10x3/uL (130-400); RBC Distribution Width 14.1 % (11.5-14.5); Red Blood Cell (RBC) Count 4.77 mill/uL (4.20-5.40)
[2024-06-08] MEDS ORDERED: Ketorolac Tromethamine 30 MG (1 mL) VIAL ONE (12:46)
[2024-06-08 13:06] LABS: ALT (SGPT) 12 U/L (Less than 34); AST (SGOT) 33 U/L (11-34); Alkaline Phosphatase 104 U/L (40-110); Anion Gap 17 mmol/L (10-20); BUN (Urea Nitrogen) 7 mg/dL (9.8-20.1); Bilirubin, Total 0.2 mg/dL (0.3-1.2); Calc. Creatinine Clearance 0 mL/min (70-130); Calcium 9.3 mg/dL (7.8-10.44); Carbon Dioxide 17 mmol/L (22-29); Chloride 106 mmol/L (98-107); Estimated GFR 77; Globulin 3.7 g/dL (2.4-3.5); Glucose 98 mg/dL (70-105); Lipase 37 U/L (8-78); Protein, Total 7.7 g/dL (6.0-8.3); Sodium 136 mmol/L (136-145)
[2024-06-08 13:12] LABS: Troponin I Less than 0.010 ng/mL (< 0.028)
[2024-06-08 13:18] LABS: Bacteria/HPF None Seen HPF (None Seen); Bilirubin Negative (Negative); Blood, Urine 1+ (Negative); CAUTI Indications for Culture Pelvic or flank pain; Clarity Clear (Clear); Glucose, Urine (Dipstick) Normal (Negative); Ketone, Urine 10 mg/dL (Negative); Leukocyte Negative Leu/uL (Negative); Nitrite Negative (Negative); Protein, Urine (Dipstick) 30 mg/dL (Neg-Trace); RBC/HPF 0-3 HPF (0-3); Specific Gravity, Urine 1.045 (1.002-1.036); Squamous Epithelial 0-3 HPF (0-3); Urobilinogen Normal mg/dL (Less than 2); WBC/HPF 0-3 HPF (0-3)
[2024-06-08 13:20] LABS: Urine Culture Reflex No No
[2024-06-08] MEDS ORDERED: Acetaminophen/Codeine 30-300mg Tablet ONE (14:34)
== END 2024-06-08 14:42 | disposition home or self-care (01) ==
LOC: ERS 10:25
DX: J10.1 Influenza due to other identified influenza virus with other respiratory manifestations (principal); E86.0 Dehydration; I10 Essential (primary) hypertension; F17.210 Nicotine dependence, cigarettes, uncomplicated; Z79.899 Other long term (current) drug therapy
CPT/HCPCS: 71045; 80053; 81001; 83605; 83690; 84484; 85025; 87428; 93005; 96374; 96375; 99284; J1885; J2272; J2405